=== PATIENT | female | born 1960 | race Caucasian/White ===

== ENCOUNTER 2024-11-08 14:46 | Outpatient (REF) | payer OTHER, SELFPAY ==
--- NOTE | ~2024-11-08 | XR_ITS ---
EXAMINATION: XR CHEST CLINICAL INFORMATION: T78.40XA - Allergy, unspecified, initial encounter COMPARISON: None available. TECHNIQUE: 2 views of the chest were obtained. FINDINGS: No consolidation, pleural effusion or pneumothorax. Cardiomediastinal silhouette size is normal. Multilevel thoracic spondylosis. Mild S-shaped curvature of the thoracolumbar spine. XR/XR chest 2V IMPRESSION: No acute airspace disease. Spondylosis, thoracic spine. Electronically signed by: Josr Mcintosh MD 11/08/2024 03:47 PM EDT
[2024-11-08 15:59] LABS: MANUAL DIFF FLAG NO
[2024-11-08 17:11] LABS: Hematocrit 36.3 % (37.0-47.0); Hemoglobin 12.5 g/dl (12.0-16.0); Imm Gran Abs Auto 0.01 X10*3/uL (0.00-0.03); Imm Gran Pct Auto 0.2 % (0.0-0.4); Lymphocytes Absolute Auto 2.1 X10*3/uL (1.2-4.9); Mean Corpuscular HGB Conc 34.4 g/dl (31.0-35.0); Mean Corpuscular Hemoglobin 30.4 pg (27.0-33.0); Mean Corpuscular Volume 88.3 fL (80.0-98.0); NRBC Abs Auto 0.000 X10*3/uL (0.0-0.012); NRBC Pct Auto 0.0 /100WBC (0.0-0.2); Platelet Count 185 X10*3/uL (160-400); Red Blood Count 4.11 X10*6/uL (4.20-5.50); White Blood Count 5.9 X10*3/uL (4.8-10.8)
[2024-11-09 22:59] LABS: Class Alternaria alternata 0; Class Aspergillus fumigatus 0; Class Bermuda Grass 0; Class Birch 0; Class Cat Dander 2; Class Cladosporium herbarum 0; Class Cockroach 0; Class Common Ragweed 0/1; Class Cottonwood 0; Class Derm. pterony 0; Class Dermatophagoides farinae 0; Class Dog Dander 0/1; Class Elm 0; Class Maple Box Elder 0; Class Mountain Cedar 0; Class Mouse Urine Protein 0; Class Mugwort 0; Class Oak 0; Class Penicillium crysogenum 0; Class Rough Pigweed 0; Class Sheep Sorrel 0; Class Sycamore 0; Class Timothy Grass 0; Class Walnut Tree 0; Class White Ash 0; Class White Mulberry 0; D002 - IgE D farinae <0.10 kU/L; E001 - IgE Cat Dander 1.12 kU/L; E005 - IgE Dog Dander 0.23 kU/L; G006 - IgE Timothy Grass <0.10 kU/L; I006-IgE Cockroach, German <0.10 kU/L; M002 - IgE Cladosporium herbar <0.10 kU/L; M003 - IgE Aspergillus fumigat <0.10 kU/L; M006 - IgE Alternaria alternat <0.10 kU/L; T001 IgE Maple/Box Elder <0.10 kU/L; T006 - IgE Cedar, Mountain <0.10 kU/L; T007 - IgE Oak, White <0.10 kU/L; T008 IgE Elm, American <0.10 kU/L; T010 - IgE Walnut <0.10 kU/L; T011 - IgE Maple Leaf Sycamore <0.10 kU/L; T014 - IgE Cottonwood <0.10 kU/L; T015 - IgE Ash, White <0.10 kU/L; T070 - IgE White Mulberry <0.10 kU/L; W001 - IgE Ragweed, Short 0.16 kU/L; W006 - IgE Mugwort <0.10 kU/L; W014 IgE Pigweed, Common <0.10 kU/L; W018 IgE Sheep Sorrel <0.10 kU/L
== END 2024-11-08 14:47 | disposition home or self-care (01) ==
LOC: HO.LAB 14:46
PROVIDERS: PCP Internal Medicine; Referring Provider Internal Medicine; Visit Provider Hospitalist
DX: J44.89 Other specified chronic obstructive pulmonary disease (principal); T78.40XA Allergy, unspecified, initial encounter; R07.89 Other chest pain; R06.02 Shortness of breath; R91.1 Solitary pulmonary nodule; Z01.84 Encounter for antibody response examination; Z87.891 Personal history of nicotine dependence
CPT/HCPCS: 36415; 71046; 82103; 82784; 82785; 85025; 85652; 86003

== ENCOUNTER 2024-11-08 14:46 | Outpatient (AMB) | payer OTHER, SELFPAY ==
--- NOTE | 2024-11-08 14:48 | A.OFFVIS_ITS ---
Vital Signs 11/08/24 14:49 Height 5 ft 7 in Weight 202 lb 13.204 oz BMI 31.8 BP 126/78 Blood Pressure Location Lt brachial Position Sitting Pulse 61 Pulse Source Pulse Oximeter Pulse Oximetry (%) 96 Oxygen Delivery Method Room Air Intake Visit Reasons: COPD Allergies medroxyprogesterone (From Provera) Allergy (Mild, Verified 11/08/24 14:54) Anxiety erythromycin base (From E-Mycin) Allergy (Unknown, Verified 11/08/24 14:54) Stomach Upset minocycline (From Minocin) Allergy (Unknown, Verified 11/08/24 14:54) Unknown HPI Comments Details: The patient is here for pulmonary evaluation. The patient is a 64 year woman, former smoker, who presents with worsening chest tightness and shortness of breath. The patient has been describing increasing symptoms of shortness breath with activity. Moderate severity. She did see her primary care doctor. She was started on a rescue inhaler. Subsequently she did undergo pulmonary function studies. They were done at [facility] I did review them. There appears to be a mild obstructive physiology consistent with asthma COPD overlap syndrome since she does have reversibility. In addition significant small airways disease. On further questioning she did quit smoking back in the . 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 She was exposed to significant amount of fumes and toxins for many years. She no longer is exposed to that. She denies any mold exposure or any significant allergies. She did have chronic rhinitis and eczema in the past but that has improved. As far as inhalers she was initially placed on Incruse for COPD and then she was placed on Anoro. Although she did not see any significant improvement. Based on the small airways disease I do believe that a small particle size HFA will be more effective for her. Specially since she already tried and failed powder inhalers. Has spacer will provide also some benefit and administration of the medication. Will go ahead and request allergy testing and also blood work in addition to a chest x-ray. [facility] Medical History (Updated 11/08/24 @ 20:22 by Zac Ortiz MD) Asthma-COPD overlap syndrome Allergies Social History (Updated 11/08/24 @ 14:55 by Lizzy Cunningham CMA) Patient Tobacco Use Status: Former Tobacco user Review of Systems Const Denies fever(s) Eyes Reports no additional complaints ENT Reports nasal congestion Card Denies chest pain and Reports dyspnea on exertion Resp Reports cough, Reports dyspnea on exertion and Reports wheezing GI Denies abdominal pain Musc Reports no additional complaints Skin/Breast Denies rash Neuro Reports no additional complaints Endo Reports no additional complaints Ramana/Lymph Reports no additional complaints Aller/Immun Reports wheezing Physical Exam Vital Signs: Last Vital Signs Pulse 61 11/08/24 14:49 BP 126/78 11/08/24 14:49 Pulse Ox 96 11/08/24 14:49 Oxygen Delivery Method Room Air 11/08/24 14:49 BMI result Body Mass Index 31.8 Const General: comfortable HEENT Head: Yes normocephalic Neck Neck: Yes supple Chest Chest palpation & inspection: normal inspection of the chest Resp Effort & Inspection: normal respiratory effort and prolonged expiratory phase Auscultation: diminished lung sounds Cardio Heart sounds: S1 normal heart sound present and S2 normal heart sound present GI Palpation (GI): Soft to palpation Skin General skin exam: no rashes or lesions noted Extrem General: Yes no clubbing, cyanosis or edema Assessment & Plan Assessment & Plan (1) Allergies: Code(s): T78.40XA - Allergy, unspecified, initial encounter Category: Medical Qualifiers: Encounter type: initial encounter Qualified Code(s): T78.40XA - Allergy, unspecified, initial encounter (2) Asthma-COPD overlap syndrome: Code(s): J44.89 - Other specified chronic obstructive pulmonary disease Category: Medical Plan Stop Anoro Start Symbicort with specer Bloodwork and allergy testing CXR F/U 6-8 weeks Orders: Orders Complete Blood Count Auto Diff Today J. - Other specified chronic obstructive pulmonary disease, T78.40XA - Allergy, unspecified, initial encounter Erythrocyte Sedimentation Rate Today J44. - Other specified chronic obstructive pulmonary disease, T78.40XA - Allergy, unspecified, initial encounter XR chest 2V Today J44.89 - Other specified chronic obstructive pulmonary disease, T78.40XA - Allergy, unspecified, initial encounter Resp Allergy Profile Region I Today J - Other specified chronic obstructive pulmonary disease, R91.1 - Solitary pulmonary nodule, T78.40XA - Allergy, unspecified, initial encounter Immunoglobulin E Today J44 - Other specified chronic obstructive pulmonary disease, T78.40XA - Allergy, unspecified, initial encounter Immunoglobulins,IgG IgA IgM Today J44. - Other specified chronic obstructive pulmonary disease, T78.40XA - Allergy, unspecified, initial encounter Alpha 1 Anti-trypsin Today J44. - Other specified chronic obstructive pulmonary disease, T78.40XA - Allergy, unspecified, initial encounter Medications: New budesonide-formoterol 160-4.5 mcg/actuation (Symbicort) 2 puffs inhalation BID 10.2 grams 11RF 30 days J44. - Other specified chronic obstructive pulmonary disease budesonide-formoterol 160-4.5 mcg/actuation (Symbicort) 2 puffs inhalation BID 10.2 grams 11RF 30 days J44. - Other specified chronic obstructive pulmonary disease Coding Level of Care Code New Pt Level 4 (90161) Diagnoses Allergy, initial encounter T78.40XA Encounter type: initial encounter Asthma-COPD overlap syndrome J44. Time Spent (min) 40
[2024-11-08 14:49] VITALS: BP 126/78; PULSE 61; O2SAT 96; BMI 31.8
--- OUTSIDE RECORDS SUMMARY | 2024-11-08 15:56 | XMS_ITS | Clinical Summary ---
Author Organization [facility] Address [address] [place] [address] Phone Care Team Providers Care Broke Beater Operator Name Role Phone Brooks Hansen MD Primary Care Provider Allergies Active Allergy Reactions Criticality Noted Date Comments Erythromycin Unknown 06/06/2005 Other Reaction(s): diarrhea and stomach pains Medroxyprogesterone 11/08/2020 Other Reaction(s): heart palpitations, dizziness, Unknown ANXIOUS Metformin Unknown 09/06/2024 Minocycline Dizziness,Unknown 06/06/2005 Medications blood-glucose meter kit Use daily 10/25/19 17 Active leg brace (KNEE SUPPORT BRACE [facility]) Elastic Bandages & Supports (KNEE BRACE ADJUSTABLE HINGED) [facility] Patient si Device by Does not apply route daily 03/11/20 19 Active FREESTYLE LANCETS MISC Test BID 10/25/19 17 Active blood sugar diagnostic (FreeStyle Lite Strips) test strip Test BID 10/25/19 17 Active FA/mv,Ca,iron,min/ lycopene/lut (MULTIVITAL ORAL) Take by mouth. Active acyclovir (ZOVIRAX) 5 % cream Apply small amount topically up to 5 times daily to lesion 03/17/20 12 Active etodolac (LODINE) 400 mg tablet Take 400 mg by mouth 2 times daily. Active famotidine (PEPCID) 20 mg tablet Take 1 Tab by mouth 2 times daily. 07/20/19 16 Active lisinopriL (PRINIVIL,ZESTRIL) 10 mg tablet Take 10 mg by mouth daily. Active menthol-zinc oxide (Calmoseptine) 0.44-20.6 % ointment Apply 1 Applicator topically every morning. 11/01/19 20 Active NYSTATIN TOP Apply to groins 1-2 times daily 09/11/19 22 Active simvastatin (ZOCOR) 10 mg tablet Take 10 mg by mouth at bedtime. Active mometasone (ELOCON) 0.1 % ointment APPLY TO AFFECTED AREA every other night 45 g 08/13/19 25 Active Additional Information Patient not taking.Reported on 09/06/2024 Anoro Ellipta 62.5-25 mcg/actuation inhaler 08/24/19 25 Active hydroCHLOROthiazid e 10 mg/mL suspension for reconstitution Take by mouth. 10/26/19 24 Active esomeprazole (NexIUM) [address] capsule Take 1 capsule (20 mg total) by mouth. 08/14/19 17 Active triamcinolone (KENALOG) 0.1 % ointment Apply MWF, up to nightly 30 g 09/07/19 25 Active Active Problems Problem Noted Date Diagnosed Date Skin tag 09/06/2024 Assessment & Plan (09/06/2024 4:06 PM EDT): Removed and sent to pathology. Cutaneous candidiasis 09/06/2024 Assessment & Plan (09/06/2024 4:06 PM EDT): Will treat with nystatin cream Bid until resolved. Follicular cyst of skin 09/10/2021 Overview (06/20/2024): Last Assessment & Plan: Explained findings. Explained that there is no evidence of infection and is already draining spontaneously. Continue to monitor, but no need for abx. Continue warm compress for comfort and avoid underwear rubbing by not wearing or wearing boxer shorts. She agreed to return if not resolved in the next few weeks. Moderate episode of recurren t major depressive disorder (CMS/HCC V24, CMS/HCC V28) 08/07/2021 Overview (06/20/2024): Last Assessment & Plan: Given list of therapists in the area. She contracts for safety. I also encouraged her to contact patient representatives. Mixed incontinence urge and stress 05/16/2021 Overview (06/20/2024): Had UDS at [facility]- awaiting results for recommendations Last Assessment & Plan: Follow up with Urogyn at [facility] for intervention as scheduled. Anxiety 03/14/2019 Elevated blood pressure read ing without diagnosis of hypertension 03/14/2019 Vulvar atrophy 07/13/2018 Overview (06/20/2024): Last Assessment & Plan: No treatment at this time given itching overall well controlled and unclear if had reaction last time used. Subclinical hypothyroidism 10/20/2016 Overview (06/20/2024): Last Assessment & Plan: Will recheck at next visit. Given LS, likely autoimmune thyroid disease and may benefit from treatment even when subclinical. She agreed. Acute deep vein thrombosis ( DVT) of popliteal vein of right lower extremity (CMS/HCC V24, CMS/HCC V28) 10/01/2016 Overview (06/20/2024): After a fall with ACL tear- Took Elaquist for 6 mos, then told no longer needed' No family history of clotting disorder. Taken E2 in past without issue Complete tear of right ACL 06/03/2016 Microalbuminuria 03/25/2016 Hyperlipidemia LDL goal <100 10/03/2015 Lichen sclerosus 01/29/2015 Overview (06/20/2024): Last Assessment & Plan: Reviewed findings with patient. Well controlled. Continue every other day mometasone. Assessment & Plan (09/06/2024 4:07 PM EDT): Reviewed findings with patient. Well controlled. Continue MWF mometasone. If not covered, can switch to triamcinolone. Dyspnea on exertion 09/15/2012 Overview (06/20/2024): Normal ETT and normal echo 08/2012 Incomplete right bundle branch block 08/18/2012 Type 2 diabetes mellitus wit h renal manifestations (CMS/HCC V24, CMS/HCC V28) 09/11/2011 Overview (06/20/2024): Microalbuminuria Last Assessment & Plan: Reviewed better control of DM II may also help with recurrence of itching. Back pain 02/26/2011 GERD (gastroesophageal reflux disease) 1 Neoplasm of uncertain behavior of skin 8 Overview (06/20/2024): Dysplastic nevus midback (moderately) Encounters Date Type Department Care Team Description 10/06/2024 Telephone Obstetrics and Gynecology - [address] [phone] Brenda Shen MD Lab Results 09/06/2024 3:30 PM EDT Office Visit Obstetrics and Gynecology - [address] [phone] Brenda Shen MD Encounter for gynecological examination without abnormal finding (Primary Dx); Lichen sclerosus; Vulvar atrophy; Skin tag; Cutaneous candidiasis from Last 3 Months Immunizations Name Administration Dates Next Due Influenza trivalent, 0.5mL, preservative free (Fluarix; FluLaval; Fluzone) ages 6mo and older (Afluria) 3 years and older 03/01/2005 Influenza trivalent, with pr eservative (Fluzone; Afluria) 6mo and older 01/03/2016,01/18/2015,01/30/2014,04/28,01/16/2012,01/26/2011,02/15/2010 ,01/22/2009,01/20/2008,02/20/2007,12/2005 Pneumococcal polysaccharide 23 valent (Pneumovax 23) 2yo and older 03/01/2012 Td Tetanus diptheria (Tdvax) 7yo and older 06/22/2006 Tdap Tetanus diptheria acell ular pertussis (Boostrix; Adacel) 7yo and older 04/07/2014 Surgical History Surgery Date Site/Laterality Comments APPENDECTOMY 1981 PROCEDURE: HISTORICAL APPENDECTOMY DENTAL SURGERY PROCEDURE: HI UNLISTED PROCEDURE DENTOALVEOLAR STRUCTURES; COMMENT: extractions MOLE REMOVAL PROCEDURE: HISTORICAL MOLE (REMOVAL OF) COLONOSCOPY 01/22/10 PROCEDURE: HISTORICAL COLONOSCOPY; COMMENT: hemorrhoids; repeat in ten years UPPER GASTROINTESTINAL ENDOSCOPY 01/22/10 PROCEDURE: HI UPPER GI ENDOSCOPY PERFORMED; COMMENT: normal BREAST LUMPECTOMY 2012 PROCEDURE: ---- BREAST LUMP BIOPSY ----; COMMENT: benign CHOLECYSTECTOMY 06/16/14 PROCEDURE: HISTORICAL CHOLECYSTECTOMY OTHER SURGICAL HISTORY 06/16/14 PROCEDURE: HI HYSTEROSCOPY ENDOMETRIAL ABLATION; COMMENT: Novasure STEREOTACTIC CORE BIOPSY Bilateral Medical History Medical History Date Comments 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 DX:Blad felipa neck obstruction Nevus, non-neoplastic DX:Nevus, non-neoplastic Dyspnea on exertion 09/15/2012 DX:Dyspnea o n exertion; COMMENT: Normal ETT and normal echo 08/2012 Venous thrombosis of leg 08/2016 DX:Veno us thrombosis of leg; COMMENT: Right leg after fall Family History Medical History Relation Name Comments Heart attack Father Parkinson's Disease Father Basal cell carcinoma Mother nose Breast cancer Mother Alzheimer's Ovarian cancer Paternal Grandmother unsur e age, never met her Colon cancer Neg Hx Relation Name Status Comments Father (Age 77) Mother (Age 82) Paternal Grandmother Social History Tobacco Use Types Packs/Day Years Used Date Smoking Tobacco: Former Cigarettes Q uit: 04/20/1989 Smokeless Tobacco: Former Alcohol Use Standard Drinks/Week Comments No 0 (1 standard drink = 0.6 oz pur e alcohol) Comments No Sex and Gender Information Value Date Recorded Sex Assigned at Not on file Legal Sex Female 2:54 AM EST Gender Identity Not on file Sexual Orientation Not on file Obstetrics History Para Term AB IAB SAB Ectopic Multiple Livin g Live Births 2 2 2 2 2 Date Outcome GA Total Labor Labor/2nd/3rd Weight Sex Type Anes PTL Estella A1 A5 Name Clin Term Vag-S pont Living Term Vag-S pont Living Last Filed Vital Signs Vital Sign Reading Time Taken Comments Blood Pressure 122/82 09/06/2024 3:39 PM EDT Pulse 79 09/06/2024 3:39 PM EDT Temperature - - Respiratory Rate 14 09/06/2024 3:39 PM EDT Oxygen Saturation - - Inhaled Oxygen Concentration - - Weight 95.2 kg (209 lb 12.8 oz) 09/06/2024 3:39 PM EDT Height 170.2 cm (5' 7 ) 09/06/2024 3:39 PM EDT Body Mass Index 32.86 09/06/2024 3:39 PM EDT Plan of Treatment Health Maintenance Due Date Last Done Comments COVID-19 Vaccine (#1) 1967 Diabetes: Annual Foot Exam 1972 Diabetes: Annual Retina Eye Exam 1972 Diabetes: Annual GFR (Glomerular Filtration Rate) 09/13/2020 09/14/2019 Colorectal Cancer Screening: Colonoscopy 03/23/2022 HIV Screening 03/23/2022 Social Influencers of Health Screening 03/23/2022 Diabetes: Annual Urine Albumin-Creatinine Ratio (uACR) 04/03/2022 09/14/2019 Diabetes: Blood Sugar Control Test (HGBA1C) 04/03/2022 09/14/2019 RSV Immunization Adult Patients (1 - Risk 60-74 years 1-dose series) 2022 Hypertension/CHF/CAD Annual BMP Blood Test 02/26/2024 09/14/2019 Depression Screening 04/20/2024 Cholesterol Screening (Lipid Panel) 07/28/2024 07/29/2019 Influenza Vaccine (#1) 2024 4, 01/24/2023, 02/14/2022, Additional history exists Breast Cancer Screening 04/05/2026 04/05/20 24, 03/30/2023, 03/27/2022, Additional history exists Cervical Cancer Screening: HPV 02/14/2027 02/14/2022 DTaP,Tdap,and Td Vaccines (5 - Td or Tdap) 12/12/2032 12/12/2022, 04/07/2014, 06/08/2013, Additional history exists Hepatitis C Screening Completed 12/04/2012 Zoster Vaccines Completed 09/20/2021, 01/18/2021 Pneumococcal Vaccine: 50+ Years Completed 08/23/2024, 03/01/2012 HIB Vaccines Aged Out No longer eligi ble based on patient's age to complete this topic HPV Vaccines Aged Out No longer eligi ble based on patient's age to complete this topic Hepatitis A Vaccines Aged Out No long er eligible based on patient's age to complete this topic Hepatitis B Vaccines Aged Out No long er eligible based on patient's age to complete this topic IPV Vaccines Aged Out No longer eligi ble based on patient's age to complete this topic MMR Vaccines Aged Out No longer eligi ble based on patient's age to complete this topic Meningococcal ACWY Vaccine Aged Out N o longer eligible based on patient's age to complete this topic Meningococcal B Vaccine Aged Out No l onger eligible based on patient's age to complete this topic RSV Immunization Patients Under 20 months Aged Out No longer eligible based on patient's age to complete this topic Varicella Vaccines Aged Out No longer eligible based on patient's age to complete this topic Procedures Procedure Name Priority Date/Time Associated Diagnosis Comments TISSUE EXAM Routine 09/06/2024 4:08 PM EDT Skin tag MG MAMMO DIGITAL SCREENING W HEATH BILAT Routine 04/05/2024 2:46 PM EST Encounter for screening mammogram for breast cancer HM HPV Routine 02/14/2022 HM URINE ALBUMIN CREATININE RATIO Routine 09/14/2019 ANNUAL BMP BLOOD TEST Routine 09/14/2019 HEMOGLOBIN A1C Routine 09/14/2019 LIPID PANEL Routine 07/29/2019 HEPATITIS C SCREENING Routine 12/04/2012 from Last 3 Months or Most Recently Relevant to Health Maintenance Results * Tissue exam (09/06/2024 4:08 PM EDT) Final Diagnosis Vulva, biopsy: Fibroepithel ial polyp 09/09/2024 1:11 PM EDT [facility] Clinical Information Skin tag [id number] 09/09/2024 1:11 PM EDT [facility] Gross Description A. Vulva, skin tag: Labeled vulva . Received in formalin is a 0.3 x 0.3 x 0.2 cm myles-white granular polypoid wrinkled skin which is inked blue at the base and submitted in toto in one cassette, one piece, multiple levels on one slide. DOMENIC 09/09/2024 1:11 PM EDT [facility] Disclaimer Unless otherwise specified, all tissue is 10% NB formalin fixed and paraffin embedded. 09/09/2024 1:11 PM EDT [facility] Tissue Vulval structure / Unknown Non-blood Collection / Unknown 09/06/2024 4:08 PM EDT 09/06/2024 4:08 PM EDT us Brenda Shen MD LAB PATHOLOGY ORDERABLES Fi nal Result [facility] [address] [place] [address], [place] [phone] * MG Mammo Digital Screening w Heath bilat (04/05/2024 2:46 PM EST) Anatomical Region Laterality Modality Breast Bilateral Mammography 04/08/2024 8:28 AM EST Impressions 04/08/2024 9:34 AM EST Benign. BI-RADS CATEGORY: 2 - BENIGN RECOMMENDATION: Screening bilateral mammogram is recommended in 1 year. Mammo Location: [facility], [address] [place] [address], [id number], . -------- FINAL REPORT -------- Dictated By: NILES AVILES Dictated Date: 04/08/2024 08:28 ET Assigned Physician: NILES AVILES Reviewed and Electronically Signed By: NILES AVILES Signed Date: 04/08/2024 09:34 ET Workstation ID: [id number] Transcribed By: Self Edit Transcribed Date: 04/08/2024 08:30 ET Narrative 04/08/2024 9:34 AM EST CLINICAL: 63 years old, Female, routine annual exam. There is a family history of breast cancer in the patient's mother at age 58. The patient had a lumpectomy in 2012, pathology unknown. The patient has had multiple bilateral benign biopsies. COMPARISON: 03/30/2023 through 03/21/2020 TECHNIQUE: Bilateral MLO and CC views were obtained digitally with 3-D mammogram (digital breast tomosynthesis). Computer-aided detection was utilized in evaluation of this exam (CAD). FINDINGS: There is no evidence of suspicious mass or architectural distortion. No worrisome calcifications are evident. There has been no significant change from prior exam(s). Biopsy site markers and benign calcifications are seen bilaterally. BREAST DENSITY: A - The breasts are almost entirely fatty. Procedure Note Niles Aviles MD - 04/08/2024 CLINICAL: 63 years old, Female, routine annual exam. There is a familyhistory of breast cancer in the patient's mother at age 58. The patienthad a lumpectomy in 2012, pathology unknown. The patient has had multiplebilateral benign biopsies. COMPARISON: 03/30/2023 through 03/21/2020 TECHNIQUE: Bilateral MLO and CC views were obtained digitally with 3-Dmammogram (digital breast tomosynthesis). Computer-aided detection wasutilized in evaluation of this exam (CAD). FINDINGS: There is no evidence of suspicious mass or architectural distortion. Noworrisome calcifications are evident. There has been no significantchange from prior exam(s). Biopsy site markers and benigncalcifications are seen bilaterally. BREAST DENSITY: A - The breasts are almost entirely fatty. IMPRESSION: Benign. BI-RADS CATEGORY: 2 - BENIGN RECOMMENDATION: Screening bilateral mammogram is recommended in 1 year. Mammo Location: [facility], [address] [place] [address], [facility], . -------- FINAL REPORT -------- Dictated By: NILES AVILES Dictated Date: 04/08/2024 08:28 ET Assigned Physician: NILES AVILES Reviewed and Electronically Signed By: NILES AVILES Signed Date: 04/08/2024 09:34 ET Workstation ID: [id number] Transcribed By: Self Edit Transcribed Date: 04/08/2024 08:30 ET us Self Referral Sppl IMG BI PROCEDURES Final Resul t * Cervical Cancer Screening: HPV (02/14/2022) Pathologist Counts include 234 beds at the [facility] Cervical Cancer Screening: HPV negative,a bstracted Result [facility] Provider HEALTH MAINTENANCE Final Result * Urine Albumin Creatinine Ratio (09/14/2019) [facility] Urine Albumin Creatinine Ratio abstracted Result [facility] Provider HEALTH MAINTENANCE Final Result * Annual BMP Blood Test (09/14/2019) [facility] Annual BMP Blood Test abstracted Result [facility] Provider HEALTH MAINTENANCE Final Result * (ABNORMAL) Hemoglobin A1c (09/14/2019) [facility] Hemoglobin A1C 6.9(A) <=6.5 % Blood Venous blood specimen / Unknown Result [facility] Provider LAB BLOOD ORDERABLES Misty l Result * (ABNORMAL) Lipid panel (07/29/2019) [facility] LDL/HDL Ratio 3 0 - 4 Triglycerides 63 0 - 150 mg/dL Cholesterol 190 0 - 200 mg/dL HDL 67 >=60 mg/dL LDL Cholesterol 111(A) 0 - 100 mg/dL Blood Venous blood specimen / Unknown Result [facility] Provider LAB BLOOD ORDERABLES Misty l Result * Hepatitis C Screening (12/04/2012) [facility] Hepatitis C Screening abstracted Result [facility] Provider HEALTH MAINTENANCE Final Result from Last 3 Months or Most Recently Relevant to Health Maintenance Insurance [facility] Advance Directives Documents on File Type Date Recorded Patient Powder Operator Expl anation Health Care Decision (hx) 06/26/2020 AD PASTOR DIRECTIVE Health Care Decision (hx) 06/26/2020 AD PASTOR DIRECTIVE Health Care Decision (hx) 06/26/2020 AD PASTOR DIRECTIVE Health Care Decision (hx) 06/26/2020 AD PASTOR DIRECTIVE Health Care Decision (hx) 06/26/2020 AD PASTOR DIRECTIVE Health Care Decision (hx) 06/26/2020 AD PASTOR DIRECTIVE Health Care Decision (hx) 06/26/2020 AD PASTOR DIRECTIVE Health Care Decision (hx) 06/26/2020 AD PASTOR DIRECTIVE Health Care Decision (hx) 06/26/2020 AD PASTOR DIRECTIVE Health Care Decision (hx) 04/05/2014 AD PASTOR DIRECTIVE Health Care Decision (hx) 04/05/2014 AD PASTOR DIRECTIVE Health Care Decision (hx) 04/05/2014 AD PASTOR DIRECTIVE Health Care Decision (hx) 04/05/2014 AD PASTOR DIRECTIVE Health Care Decision (hx) 04/05/2014 AD PASTOR DIRECTIVE Health Care Decision (hx) 04/05/2014 AD PASTOR DIRECTIVE Health Care Decision (hx) 04/05/2014 AD PASTOR DIRECTIVE Health Care Decision (hx) 04/05/2014 AD PASTOR DIRECTIVE Health Care Decision (hx) 04/05/2014 AD PASTOR DIRECTIVE Health Care Decision (hx) 04/05/2014 AD PASTOR DIRECTIVE Health Care Decision (hx) 04/05/2014 AD PASTOR DIRECTIVE Health Care Decision (hx) 04/05/2014 AD PASTOR DIRECTIVE Health Care Decision (hx) 04/05/2014 AD PASTOR DIRECTIVE Health Care Decision (hx) 04/05/2014 AD PASTOR DIRECTIVE Health Care Decision (hx) 04/05/2014 AD PASTOR DIRECTIVE Health Care Decision (hx) 04/05/2014 AD PASTOR DIRECTIVE Health Care Decision (hx) 04/05/2014 AD PASTOR DIRECTIVE Health Care Decision (hx) 04/05/2014 AD PASTOR DIRECTIVE Health Care Decision (hx) 04/05/2014 AD PASTOR DIRECTIVE Health Care Decision (hx) 04/05/2014 AD PASTOR DIRECTIVE Health Care Decision (hx) 04/05/2014 AD PASTOR DIRECTIVE Health Care Decision (hx) 04/05/2014 AD PASTOR DIRECTIVE Health Care Decision (hx) 04/05/2014 AD PASTOR DIRECTIVE Health Care Decision (hx) 04/05/2014 AD PASTOR DIRECTIVE Health Care Decision (hx) 04/05/2014 AD PASTOR DIRECTIVE Health Care Decision (hx) 04/05/2014 AD PASTOR DIRECTIVE Health Care Decision (hx) 04/05/2014 AD PASTOR DIRECTIVE Health Care Decision (hx) 04/05/2014 AD PASTOR DIRECTIVE Care Teams Broke Beater Operator Relationship Specialty Start Date End Date Brooks Hansen MD [address] [place] [address] PCP - General Internal Medicine 04/03/20
--- OUTSIDE RECORDS SUMMARY | 2024-11-08 15:56 | XMS_ITS | Patient Health Record ---
Author Organization [facility] Address [address] [facility] [address] [place] [address] Care Team Providers Care Training And Documentation Specialist Name Role Phone Brooks Hansen Primary Care Provider Unavailabl e Allergies Allergen (clinical drug ingredient) Drug/Non Drug Allergy documented on EMR Reaction Allergy Type Onset Date Status erythromycin Ethylsuccinate (uncoded) Unknown Allergy Active erythromycin Erythromycin Unknown Drug Allergy A ctive medroxyprogesterone MedroxyPROGESTERone Acetate Unknown Drug Allergy Active metformin Metformin Unknown Drug Allergy Active minocycline Minocycline Unknown Drug Allergy Act randal Reason For Referral No Information Medications Medication SIG (Take, Route, Frequency, Duration) Notes Start Date End Date Status Lancets - as directed Active FreeStyle Lite Test - as directed In Vitro Active Mometasone Furoate 0.1 % 1 application Externally Once a day Active Simvastatin Active Lisinopril Active Zovirax 5 % 1 application every 3 hours Externally Six times a day Active Calmoseptine 0.44%-20.6% topical ointment Active Omeprazole 20 MG 1 capsule 30 minutes before morning meal Orally Once a day Active Meloxicam 15 MG 1 tablet Orally Once a day Active Trulicity 0.75 MG/0.5ML as directed Subcutaneous Active Pepcid AC 10 MG 1 tablet as needed Orally Twice a day Active Nystatin - as directed Active Problems Problem Type SNOMED Code ICD Code Onset Dates Problem Status W/U Status Risk Notes Problem [id number] Hallux valgus (acquired), right foot (M20.11) Active confirmed Plan Of Treatment Pending Test Test Name Order Date Ultrasound : Doppler : Veins Leg Fredi. Insurance Providers Payer Name Payer Address Payer Phone Subscriber Number Group Number Insured Name Patient Relationship to Insured Coverage Start Date Coverage End Date [facility] [address] [place] [address] [place] [phone] [id number] Sangeetha Mcfadden Self - patient is the insured Medical (General) History Medical History History ICD Code Right ACL tear DVT right leg Diabetes dyspepsia lichen sclerosis osteoarthritis Surgical History Surgery Date(Month/Year) cholecystectomy 05/2014 appendectomy 1981 endometrial ablation 05/2014 Breast lump biopsy-benign 2013
== END 2024-11-08 15:29 | disposition home or self-care (01) ==
LOC: HO.HPS 14:47
PROVIDERS: PCP Internal Medicine; Referring Provider Internal Medicine; Visit Provider Hospitalist
DX: T78.40XA Allergy, unspecified, initial encounter (principal); J44.89 Other specified chronic obstructive pulmonary disease
CPT/HCPCS: 99204

== ENCOUNTER → 2024-11-08 15:32 | Outpatient (BNV) | payer OTHER, SELFPAY | PROVIDERS: PCP Internal Medicine; Referring Provider Internal Medicine; Visit Provider Radiology Diagnostic Radiology | DX: M47.814 Spondylosis without myelopathy or radiculopathy, thoracic region (principal) | CPT/HCPCS: 71046 ==

== ENCOUNTER 2025-01-05 08:20 | Outpatient (AMB) | payer OTHER, SELFPAY ==
--- OUTSIDE RECORDS SUMMARY | 2024-08-18 02:32 | XMS_ITS ---
Author Organization [facility] Address [facility] [place], [place] [id number] Care Team Providers Care Digital Photographer Name Role Phone STEPHANY AGUIRRE Primary Care Provider [phone] REASON FOR VISIT ABM Encounters Encounter Location Date Provider Diagnosis [facility] [address] [place] [phone] 08/18/2024 STEPHANY AGUIRRE PLAN OF TREATMENT Next Appt Details Provider Name:STEPHANY AGUIRRE , 03/01/2025 08:00:00 AM, [address] [place], [phone],
--- OUTSIDE RECORDS SUMMARY | 2024-08-23 04:15 | XMS_ITS ---
Author Organization [facility] Address [address] [place], [place] [phone] Care Team Providers Care Financial Business Analyst Name Role Phone STEPHANY AGUIRRE Primary [...] Diagnosis 1 COPD, mild (J44.9) Referral Organization [facility] Referring Provider First Name STEPHANY Referring Provider Last Name CARLA Referring Provider Speciality Internal M edicine Referred Provider SAVANNAH ORTIZ Referred Provider Specialty Pulmonary Di seases General Notes HOLD FOR LOCKED NOTE , Loly JAMES Admin 08/23/2024 12:31:56 PM > faxed medical referral, note and most recent lab work to [phone]>faxed separately to same number is PFT results>no [...] Lite Test - apply 1 Drop [place] [facility]Non-Drug; Combo Route) route every day as directed by physician In Vitro Once a day for 90 days 11/22/2019 Active FreeStyle Lancets - apply by [facility]Non-Drug; Combo Route) route Test daily MISCELLANEOUS 11/22/2019 Active Methocarbamol 750 MG 1 tablet Orally as needed 12/12/2022 Active Etodolac 400 MG 1 tablet with food Orally Twice a day Active Nystatin 185792 UNIT/GM 1 application Externally Twice a day [...] 50+ - as directed Orally Active Acid Investor 10 MG 1 tablet Orally at bedtime Active Anoro Ellipta 62.5-25 MCG/ACT 1 puff Inh alation Once a day for 30 day(s) 08/23/2024 Active IMMUNIZATIONS Vaccine Route Administration Date Status Comme nts [id number] IM Intramuscular 08/23/2024 Administered SOCIAL HISTORY Tobacco [...] 08/23/2024 Encounters Encounter Location Date Provider Diagnosis [facility] [address] [place] [phone] 08/23/2024 [facility] Type 2 diabetes mellitus with hyperglycemia, [...] Provider Name:STEPHANY AGUIRRE , 03/01/2025 08:00:00 AM, [address] [place] [address], [phone], Progress Notes * Examination Category Sub-Category Detail [...] blood sugars. She has been working at [employer]. She broke out her gestational diabetes diet [...]
--- OUTSIDE RECORDS SUMMARY | 2024-08-30 09:13 | XMS_ITS ---
Author Organization [facility] Address [facility] [place], [place] [phone] Care Team Providers Care Fish Roe Processor Name Role Phone STEPHANY AGUIRRE Primary Care Provider [phone] REASON FOR VISIT Fax PFT Encounters Encounter Location Date Provider Diagnosis [facility] [address] [place] [address] 08/30/2024 STEPHANY AGUIRRE PLAN OF TREATMENT Next Appt Details Provider Name:STEPHANY AGUIRRE , 03/01/2025 08:00:00 AM, [address] [place], [phone],
--- OUTSIDE RECORDS SUMMARY | 2024-11-21 04:30 | XMS_ITS ---
Author Organization [facility] Address [address], [place] [phone] Care Team Providers Care Head Of Sales And Marketing Name Role Phone CARLA STEPHANY Primary Care Provider ALLERGIES Allergen (clinical drug [...] Inhalation every 4 hrs 04/05/2024 Active Acid Telegraph Repeater Mechanic 10 MG 1 tablet Orally at bedtime Active FreeStyle Lancets - apply by Misc.(Non-Drug; Combo Route) route Test daily MISCELLANEOUS 11/22/2019 Active Nystatin 090123 UNIT/GM 1 application Externally Twice a day Active FreeStyle Lite Test - apply 1 Drop [place] [facility]Non-Drug; Combo Route) route every day as directed [...] food Orally Twice a day Active Nystatin 319198 UNIT/GM 1 application Externally Twice a day [...] 11/21/2024 Encounters Encounter Location Date Provider Diagnosis [facility] [address] [place] [address] 11/21/2024 [facility] Type 2 diabetes mellitus with hyperglycemia, [...] hrs 04/05/2024 FreeStyle Lancets - apply by [facility]Non-D rug; Combo Route) route Test daily MISCELLANEOUS 11/22/2019 FreeStyle Lite Test - apply 1 Drop by [facility]Non-Drug; Combo Route) route every day as directed by physician In Vitro Once a day 11/22/2019 Anoro Ellipta 62.5-25 MCG/ACT 1 puff Inh alation Once a day 08/23/2024 hydroCHLOROthiazide 12.5 MG 1 tablet in the morning Orally Once a day for 90 days Next Appt Details Provider Name:STEPHANY AGUIRRE , 03/01/2025 08:00:00 AM, [address] [place] [address], [phone], Progress Notes * Examination Category Sub-Category Detail [...] 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 Blood sugars in the morning have been mostly in the 130s to 150s. COPD symptoms have been fairly stable. She was on Symbicort but was not sure she tolerating it and is back on Anoro at present she is not having any chest pain or palpitations
--- OUTSIDE RECORDS SUMMARY | 2024-11-22 02:23 | XMS_ITS ---
Author Organization [facility] Address [facility] [place], [place] [phone] Care Team Providers Care Social Media Analyst Name Role Phone STEPHANY AGUIRRE Primary Care Provider REASON FOR VISIT Labs Encounters Encounter Location Date Provider Diagnosis [facility] [address] [place] [phone] 11/22/2024 STEPHANY AGUIRRE PLAN OF TREATMENT Next Appt Details Provider Name:STEPHANY AGUIRRE , 03/01/2025 08:00:00 AM, [address] [place], [phone],
--- NOTE | 2025-01-05 08:24 | MHC.OFFVIS ---
Vital Signs 01/05/25 08:25 Height 5 ft 7 in Weight 200 lb 9.93 oz BMI 31.4 BP 100/60 Blood Pressure Location Lt brachial Position Sitting Pulse 68 Pulse Source Pulse Oximeter Pulse Oximetry (%) 94 Oxygen Delivery Method Room Air Intake Visit Reasons: COPD Accompanied by: Self / Same As Patient Allergies medroxyprogesterone (From Provera) Allergy (Mild, Verified 01/05/25 08:28) Anxiety erythromycin base (From E-Mycin) Allergy (Unknown, Verified 01/05/25 08:28) Stomach Upset minocycline (From Minocin) Allergy (Unknown, Verified 01/05/25 08:28) Unknown HPI Comments Details: The patient is a 64 year woman, former smoker, who presents with worsening chest tightness and shortness of breath. The patient has been describing increasing symptoms of shortness breath with activity. Moderate severity. She did see her primary care doctor. She was started on a rescue inhaler. Subsequently she did undergo pulmonary function studies. They were done at [facility] I did review them. There appears to be a mild obstructive physiology consistent with asthma COPD overlap syndrome since she does have reversibility. In addition significant small airways disease. On further questioning she did quit smoking back in the . 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 She was exposed to significant amount of fumes and toxins for many years. She no longer is exposed to that. She denies any mold exposure or any significant allergies. She did have chronic rhinitis and eczema in the past but that has improved. As far as inhalers she was initially placed on Incruse for COPD and then she was placed on Anoro. Although she did not see any significant improvement. Based on the small airways disease I do believe that a small particle size HFA will be more effective for her. Specially since she already tried and failed powder inhalers. Has spacer will provide also some benefit and administration of the medication. Will go ahead and request allergy testing and also blood work in addition to a chest x-ray. 01/05/2025 the patient is here for pulmonary follow-up visit. Overall she has been very well. Initially started the Symbicort and ended up with diarrhea so she stopped it. However, looked to be secondary to something else. She went back on and she is doing just fine. Denies any significant chest tightness or cough. Overall her symptoms that good. We did look at her blood work including allergy testing and she did have some minimal allergies to cats dogs and ragweed. But just minimal. Seems to be doing just well on her current therapy so no additional medicines are warranted. We also did look at her x-ray. No evidence of any parenchymal lung disease although she does have some evidence of thoracic spondylosis. We did talk about it and talked about stretching and strengthening and posture. As far as vaccine she got a pneumonia vaccine she got the RSV and she is up-to-date with the Tdap. She also got a Shingrix. Overall she is doing well will plan to follow-up in a year's time. She has any issues prior to the next visit she can always call further recommendations. [facility] Medical History (Updated 11/08/24 @ 20:22 by Zac Ortiz MD) Asthma-COPD overlap syndrome Allergies Social History (Updated 11/08/24 @ 14:55 by Lizzy Cunningham CMA) Patient Tobacco Use Status: Former Tobacco user Review of Systems Const Denies fever(s) Eyes Reports no additional complaints ENT Reports nasal congestion Card Denies chest pain and Reports dyspnea on exertion Resp Reports cough, Reports dyspnea on exertion and Reports wheezing GI Denies abdominal pain Musc Reports no additional complaints Skin/Breast Denies rash Neuro Reports no additional complaints Endo Reports no additional complaints Ramana/Lymph Reports no additional complaints Aller/Immun Reports wheezing Physical Exam Vital Signs: Last Vital Signs Pulse 68 01/05/25 08:25 BP 100/60 01/05/25 08:25 Pulse Ox 94 01/05/25 08:25 Oxygen Delivery Method Room Air 01/05/25 08:25 BMI result Body Mass Index 31.4 Const General: comfortable HEENT Head: Yes normocephalic Neck Neck: Yes supple Chest Chest palpation & inspection: normal inspection of the chest Resp Effort & Inspection: normal respiratory effort and prolonged expiratory phase Auscultation: diminished lung sounds Cardio Heart sounds: S1 normal heart sound present and S2 normal heart sound present GI Palpation (GI): Soft to palpation Skin General skin exam: no rashes or lesions noted Extrem General: Yes no clubbing, cyanosis or edema Assessment & Plan Assessment & Plan (1) Allergies: Code(s): T78.40XA - Allergy, unspecified, initial encounter Category: Medical Qualifiers: Encounter type: initial encounter Qualified Code(s): T78.40XA - Allergy, unspecified, initial encounter (2) Asthma-COPD overlap syndrome: Code(s): J44.89 - Other specified chronic obstructive pulmonary disease Category: Medical Plan Symbicort with specer SYMONE as needed consider Singulair F/U 12 months Coding Level of Care Code Est Pt Level 4 (31512) Diagnoses Allergy, initial encounter T78.40XA Encounter type: initial encounter Asthma-COPD overlap syndrome J44.89 Time Spent (min) 16
[2025-01-05 08:25] VITALS: BP 100/60; PULSE 68; O2SAT 94; BMI 31.4
--- OUTSIDE RECORDS SUMMARY | 2025-01-05 09:19 | XMS_ITS | Patient Health Record ---
Author Organization [facility] Address [address], [place] [id number] Care Team Providers Care Procurement Services Manager Name Role Phone STEPHANY AGUIRRE Primary Care Provider [place] Unavailable [phone] ALLERGIES Allergen (clinical drug ingredient) Drug/Non Drug Allergy documented on EMR Reaction Allergy Type Onset Date Status erythromycin Erythromycin Ethylsuccinate Unknown Drug Allergy Active medroxyprogesterone medroxyPROGESTERone Acetate Unknown Drug Allergy Active metformin metFORMIN HCl explosive diarrhea Drug Allergy Active Minocycline HCl Unknown Drug Allergy Active medroxyprogesterone Provera chest pains, anxiety Drug Allergy Active REASON FOR REFERRAL Reason New patient appt PS and S Please send Xray Diagnosis 1 Trochanteric bursiti s of right hip (M70.61) Referral Organization [facility] Referring Provider First Name STEPHANY Referring Provider Last Name SUMTER Referring Provider Speciality Internal edicine Referred Provider [facility] Referred Provider Specialty Physical The rapist General Notes Sangeetha JAMES CMA 02/18 04:34:48 PM > faxed with attachments; xray would not fax as attachemnt- faxed separately thru EMR. Patient will call next week for appointment if she does not hear. Clinical Notes Sangeetha JAMES CMA 09:30:16 AM >refaxed- sent xray separately as this does not attach to referral. Referral Priority Routine Reason 08/24/24 W APPT New patient appt Mild COPD Diagnosis 1 COPD, mild (J44.9) Referral Organization [facility] Referring Provider First Name STEPHANY Referring Provider Last Name SUMTER Referring Provider Speciality Internal edicine Referred Provider SAVANNAH ORTIZ Referred Provider Specialty Pulmonary Di fifi General Notes HOLD FOR LOCKED NOTE , JACOBMarahdolores Schultz Admin 08/23/2024 12:31:56 PM > faxed medical referral, note and most recent lab work to [phone]>faxed separately to same number is PFT results>no referral required as is in network with pt's [facility] Referral Priority Routine MEDICATIONS Medication SIG (Take, Route, Frequency, Duration) Notes Start Date End Date Status Albuterol Sulfate HFA 108 (9 0 Base) MCG/ACT 1 puff as needed Inhalation every 4 hrs 04/05/2024 Active Anoro Ellipta 62.5-25 MCG/ACT 1 puff Inh alation Once a day 08/23/2024 Active hydroCHLOROthiazide 12.5 MG 1 tablet in the morning Orally Once a day for 90 days Active Multivitamin Adults 50+ - as directed Orally Active Acid Hand Binder Stripper 10 MG 1 tablet Orally at bedtime Active FreeStyle Lancets - apply by [facility].(Non-Drug; Combo Route) route Test daily MISCELLANEOUS 11/22/2019 Active Nystatin 005397 UNIT/GM 1 application Externally Twice a day Active FreeStyle Lite Test - apply 1 Drop by Mis.(Non-Drug; Combo Route) route every day as directed by physician In Vitro Once a day 11/22/2019 Active Flonase Allergy Relief 50 MCG/ACT 1 spray in each nostril Nasally Once a day for 30 day(s) Active Cinnamon 500 MG as directed Orally Active Biotin 5000 MCG 1 capsule Orally Onc e a day for 30 day(s) Active Vitamin D 50 MCG (2000 UT) 1 tablet Oral ly Once a day for 30 day(s) Active Simvastatin 10 MG 1 tablet in the even ing Orally Once a day 08/20/2022 Active Omeprazole 20 MG TAKE ONE CAPSULE BY MOUTH ONCE DAILY for 90 Active Methocarbamol 750 MG 1 tablet Orally as needed 12/12/2022 Active Etodolac 400 MG 1 tablet with food Orally Twice a day Active Nystatin 065864 UNIT/GM 1 application Externally Twice a day Active Mometasone Furoate 0.1 % apply by topica l route every day a thin layer to the affected area(s) External Active IMMUNIZATIONS Vaccine Route Administration Date Status Comme nts [id number] IM Intramuscular 08/23/2024 Administered Tdap (Adacel) IM Intramuscular 12/12/2022 Administered Zoster recombinant Unknown 01/24/2021 Administered Zoster recombinant Unknown 09/20/2021 Administered SOCIAL HISTORY Tobacco Use: Social History Observation Description Date Details (start date - stop date) Former Smoker NA - NA Sex Assigned At : Social History Observation Description Sex Assigned At Unknown Smoking Question Answer Notes Are you a: former smoker How long has it been since you last smoked? > 10 years Section Notes: Quit smoking in 1999 PROBLEMS Problem Type ICD Code Onset Dates Problem Status W/U Status Risk SNOMED Code Notes Problem Essential (primary) hypertension (I10) Active confirmed Essential hypertension (47541812) Problem GERD without esophagitis (K21.9) Active confirmed 290108281 Problem Mixed hyperlipidemia (E78.2) Active confirmed 007521847 Problem COPD, mild (J44.9) Active confirmed [id number] Problem Type 2 diabetes mellitus with hyperglycemia, without long-term current use of insulin (E11.65) Active confirmed Hyperglycem ia due to type 2 diabetes mellitus (486925115015401 ) Problem Type 2 diabetes mellitus without complication, without long-term current use of insulin (E11.9) Active confirmed Type II diab etes mellitus without complication (079960509) VITAL SIGNS Blood pressure diastolic 76 mm Hg 11/21/2024 Height 66.00 in 11/21/2024 Blood pressure systolic 124 mm Hg 11/21/2024 Weight 199.2 lbs 11/21/2024 BMI 32.15 kg/m2 11/21/2024 Encounters Encounter Location Date Provider Diagnosis [address] [address] 02/25/2024 [facility] Encounter for genera l adult medical examination with abnormal findings Z00.01 ; Type 2 diabetes mellitus without complication, without long-term current use of insulin E11.9 ; Essential (primary) hypertension I10 ; GERD without esophagitis K21.9 ; Mixed hyperlipidemia E78.2 ; Dyspnea on exertion R06.09 and Right hip pain M25.[address] [address] 02/28/2024 [facility] Trochanteric bursiti s of right hip M70.[address] [address] 02/29/2024 [place] [address] [place] [address] 03/01/2024 [facility] [address] [place] [address] 03/29/2024 [facility] [address] [place] [address] 04/05/2024 [facility] COPD, mild J44.9 [facility] [address] [place] [address] 04/05/2024 [facility] [address] [place] [address] 04/05/2024 [facility] [address] [place] [address] 05/03/2024 [facility] [address] [place] [address] 05/19/2024 [facility] [address] [place] [address] 06/28/2024 [facility] [address] [place] [address] 07/05/2024 [facility] Essential (primary) hypertension I10 and Type 2 diabetes mellitus without complication, without long-term current use of insulin E11.[address] [address] 07/06/[address] [address] 08/15/2024 [facility] White coat hypertension R03.[address] [address] 08/16/2024 [facility] White coat hypertension R03.0 and Essential (primary) hypertension I10 [address] [address] 08/18/[address] [address] 08/23/2024 [facility] Type 2 diabetes mellitus with hyperglycemia, without long-term current use of insulin E11.65 ; COPD, mild J44.9 ; Essential (primary) hypertension I10 and Encounter for immunization Z23 [facility] [address] [place] [address] 08/30/2024 [facility] [address] [place] [address] 11/21/2024 STEPHANY AGUIRRE Type 2 diabetes mellitus with hyperglycemia, without long-term current use of insulin E11.65 ; Essential (primary) hypertension I10 and COPD, mild J44.9 [facility] [address] [place] [address] 11/22/2024 STEPHANY AGUIRRE ASSESSMENTS Encounter Date Diagnosis Assessment Notes Treatment Notes Treatment Clinical Notes Section Notes 11/21/2024 Type 2 diabetes mellitus with hyperglycemia, without long-term current use of insulin (ICD-10 - E11.65) 1. Type 2 diabetes mellitus: We will update A1c on current diet control. Last was 7.5 and fasting sugars are not ideal. She may need medication 2. Hypertension: Stable on present hydrochlorothiazid e. No changes made today. Will check electrolytes with labs 3. COPD: Stable currently on Anoro and as needed albuterol. Will follow with pulmonary 11/21/2024 Essential (primary) hypertension (ICD-10 - I10) 1. Type 2 diabetes mellitus: We will update A1c on current diet control. Last was 7.5 and fasting sugars are not ideal. She may need medication 2. Hypertension: Stable on present hydrochlorothiazid e. No changes made today. Will check electrolytes with labs 3. COPD: Stable currently on Anoro and as needed albuterol. Will follow with pulmonary 08/23/2024 Type 2 diabetes mellitus with hyperglycemia, [...] made today 4. Prevnar 20 given today 08/16/2024 [place] hypertension (ICD-10 - R03.0) 08/16/2024 Essential (primary) hypertension (ICD-10 - I10) Device returned, uploaded. Report printed and sent to ordering provider for review. Pt reports no issues while wearing monitor. 08/15/2024 [place] hypertension (ICD-10 - R03.0) ABPM placed today patient aware of instructions, questions reviewed and consent form signed. Removal booked for tomorrow 07/05/2024 Type 2 diabetes mellitus without complication, without long-term current use of insulin (ICD-10 - E11.9) 1. Hypertension: Erratic readings. Higher here today than she has ever obtained at home. Will order a 24-hour blood pressure monitor and also have her bring on monitor to her next visit. Further decision on whether to reinstitute treatment pending results 2. Diabetes: We will update A1c on current diet therapy. 07/05/2024 Essential (primary) hypertension (ICD-10 - I10) 1. Hypertension: Erratic readings. Higher here today than she has ever obtained at home. Will order a 24-hour blood pressure monitor and also have her bring on monitor to her next visit. Further decision on whether to reinstitute treatment pending results 2. Diabetes: We will update A1c on current diet therapy. 04/05/2024 COPD, mild (ICD-10 - J44.9) 1. COPD : mild obstructive findings on PFTS will trial of Incruse and albuterol for breakthrough. Will reassess in 02/28/2024 Trochanteric bursitis of right hip (ICD-10 - M70.61) 02/25/2024 Encounter for general adult medical examination with abnormal findings (ICD-10 - Z00.01) 1. Routine healthcare maintenance: Colonoscopy is up-to-date. Mammograms up-to-date. Will she will update fasting blood work. 2. Diabetes: We will update A1c on present diet controlled. Last value was 6.9 3. Hypertension: Borderline diastolic today. Home numbers are better on current thiazide 4. Gastroesophageal reflux: Stable on omeprazole 5. Hyperlipidemia: Has not been taking her simvastatin. Will review today and stressed importance 6. Dyspnea on exertion: Will check PFTs. She has a remote smoking history 7. Right hip pain: Will check x-ray to start. Question component of bursitis 02/25/2024 Type 2 diabetes mellitus without complication, without long-term current use of insulin (ICD-10 - E11.9) 1. Routine healthcare maintenance: Colonoscopy is up-to-date. Mammograms up-to-date. Will she will update fasting blood work. 2. Diabetes: We will update A1c on present diet controlled. Last value was 6.9 3. Hypertension: Borderline diastolic today. Home numbers are better on current thiazide 4. Gastroesophageal reflux: Stable on omeprazole 5. Hyperlipidemia: Has not been taking her simvastatin. Will review today and stressed importance 6. Dyspnea on exertion: Will check PFTs. She has a remote smoking history 7. Right hip pain: Will check x-ray to start. Question component of bursitis 08/23/2024 Essential (primary) hypertension (ICD-10 - I10) [...] made today 4. Prevnar 20 given today 11/21/2024 COPD, mild (ICD-10 - J44.9) 1. Type 2 diabetes mellitus: We will update A1c on current diet control. Last was 7.5 and fasting sugars are not ideal. She may need medication 2. Hypertension: Stable on present hydrochlorothiazid e. No changes made today. Will check electrolytes with labs 3. COPD: Stable currently on Anoro and as needed albuterol. Will follow with pulmonary 02/25/2024 Essential (primary) hypertension (ICD-10 - I10) 1. Routine healthcare maintenance: Colonoscopy is up-to-date. Mammograms up-to-date. Will she will update fasting blood work. 2. Diabetes: We will update A1c on present diet controlled. Last value was 6.9 3. Hypertension: Borderline diastolic today. Home numbers are better on current thiazide 4. Gastroesophageal reflux: Stable on omeprazole 5. Hyperlipidemia: Has not been taking her simvastatin. Will review today and stressed importance 6. Dyspnea on exertion: Will check PFTs. She has a remote smoking history 7. Right hip pain: Will check x-ray to start. Question component of bursitis 08/23/2024 Encounter for immunization (ICD-10 - Z23) [...] made today 4. Prevnar 20 given today 02/25/2024 GERD without esophagitis (ICD-10 - K21.9) 1. Routine healthcare maintenance: Colonoscopy is up-to-date. Mammograms up-to-date. Will she will update fasting blood work. 2. Diabetes: We will update A1c on present diet controlled. Last value was 6.9 3. Hypertension: Borderline diastolic today. Home numbers are better on current thiazide 4. Gastroesophageal reflux: Stable on omeprazole 5. Hyperlipidemia: Has not been taking her simvastatin. Will review today and stressed importance 6. Dyspnea on exertion: Will check PFTs. She has a remote smoking history 7. Right hip pain: Will check x-ray to start. Question component of bursitis 02/25/2024 Mixed hyperlipidemia (ICD-10 - E78.2) 1. Routine healthcare maintenance: Colonoscopy is up-to-date. Mammograms up-to-date. Will she will update fasting blood work. 2. Diabetes: We will update A1c on present diet controlled. Last value was 6.9 3. Hypertension: Borderline diastolic today. Home numbers are better on current thiazide 4. Gastroesophageal reflux: Stable on omeprazole 5. Hyperlipidemia: Has not been taking her simvastatin. Will review today and stressed importance 6. Dyspnea on exertion: Will check PFTs. She has a remote smoking history 7. Right hip pain: Will check x-ray to start. Question component of bursitis 02/25/2024 Dyspnea on exertion (ICD-10 - R06.09) 1. Routine healthcare maintenance: Colonoscopy is up-to-date. Mammograms up-to-date. Will she will update fasting blood work. 2. Diabetes: We will update A1c on present diet controlled. Last value was 6.9 3. Hypertension: Borderline diastolic today. Home numbers are better on current thiazide 4. Gastroesophageal reflux: Stable on omeprazole 5. Hyperlipidemia: Has not been taking her simvastatin. Will review today and stressed importance 6. Dyspnea on exertion: Will check PFTs. She has a remote smoking history 7. Right hip pain: Will check x-ray to start. Question component of bursitis 02/25/2024 Right hip pain (ICD-10 - M25.551) 1. Routine healthcare maintenance: Colonoscopy is up-to-date. Mammograms up-to-date. Will she will update fasting blood work. 2. Diabetes: We will update A1c on present diet controlled. Last value was 6.9 3. Hypertension: Borderline diastolic today. Home numbers are better on current thiazide 4. Gastroesophageal reflux: Stable on omeprazole 5. Hyperlipidemia: Has not been taking her simvastatin. Will review today and stressed importance 6. Dyspnea on exertion: Will check PFTs. She has a remote smoking history 7. Right hip pain: Will check x-ray to start. Question component of bursitis PLAN OF TREATMENT Next Appt Details Provider Name:STEPHANY AGUIRRE , 03/01/2025 08:00:00 AM, [address] [place], [address], Insurance Providers Payer Name Payer Address Payer Phone Subscriber Number Group Number Insured Name Patient Relationship to Insured Coverage Start Date Coverage End Date [facility] [address] [place] [address] [id number] [address] SANGEETHA Self - patient is the insured 5 MEDICAL (GENERAL) HISTORY Medical History History ICD Code Disease : Dyspepsia, Disease : Lichen sclerosis, Disease : osteoarthritis, Diabetes, small airways obstructed - Dr. Ortiz Surgical History Surgery Date(Month/Year) botox inj for bladder incontinence 07/07 24 Cholecystectomy Appendectomy Right ACL tear History of endometrial ablation DVT right leg
--- OUTSIDE RECORDS SUMMARY | 2025-01-05 09:19 | XMS_ITS | Patient Health Record ---
Author Organization [facility] Address [address] [facility] [address] [place] [address] Care Team Providers Care Fisher Clam Name Role Phone Brooks Hansen Primary Care [...] Problem Status W/U Status Risk Notes Problem Acquired hallux valgus (85785554) Hallux valgus (acquired), right foot (M20.11) Active confirmed Plan Of Treatment Pending Test Test Name Order Date Ultrasound : Doppler : Veins Leg Fredi. Insurance Providers Payer Name Payer Address Payer Phone Subscriber Number Group Number Insured Name Patient Relationship to Insured Coverage Start Date Coverage End Date [facility] [address] [place], [place] [phone] [id number] Sangeetha Mcfadden Self - patient is the insured Medical (General) History Medical History History ICD Code Right ACL tear DVT right leg Diabetes dyspepsia lichen sclerosis osteoarthritis Surgical History Surgery Date(Month/Year) cholecystectomy 05/2014 appendectomy 1981 endometrial ablation 05/2014 Breast lump biopsy-benign 2013
--- OUTSIDE RECORDS SUMMARY | 2025-01-05 09:20 | XMS_ITS | Clinical Summary ---
Author Organization [facility] Address [address] [place] [address] Phone Care Team Providers Care Herbologist Name Role Phone Brooks Hansen MD Primary Care Provider [phone] Allergies Active Allergy Reactions Criticality Noted Date Comments Erythromycin Unknown 06/06/2005 Other Reaction(s): diarrhea and stomach pains Medroxyprogesterone 11/08/2020 Other Reaction(s): heart palpitations, dizziness, Unknown ANXIOUS Metformin Unknown 09/06/2024 Minocycline Dizziness,Unknown 06/06/2005 Medications blood-glucose meter kit Use daily 10/25/19 17 Active leg brace (KNEE SUPPORT BRACE [facility]) Elastic Bandages & Supports (KNEE BRACE ADJUSTABLE HINGED) [facility] Patient si Device by Does not apply [...] stress 05/16/2021 Overview (06/20/2024): Had UDS at [facility]- awaiting results for recommendations Last Assessment & Plan: Follow up with Urogyn at [facility] for intervention as scheduled. Anxiety 03/14/2019 [...] Team Description 10/06/2024 Telephone Obstetrics and Gynecology [address] [address] Brenda Shen MD from Last 3 Months Immunizations Name Administration [...] Surgical History Surgery Date Site/Laterality Comments APPENDECTOMY 1980 PROCEDURE: HISTORICAL APPENDECTOMY DENTAL SURGERY PROCEDURE: HI [...] Panel) 07/28/2024 07/29/2019 Influenza Vaccine (#1) 2024 , 01/24/2023, 02/14/2022, Additional history exists Breast Cancer [...] Procedure Name Priority Date/Time Associated Diagnosis Comments MG MAMMO DIGITAL SCREENING W HEATH BILAT Routine 04/05/2024 2:46 PM EST Encounter for screening mammogram for breast cancer HM HPV Routine 02/14/2022 HM URINE ALBUMIN CREATININE RATIO Routine 09/14/2019 ANNUAL BMP BLOOD TEST Routine 09/14/2019 HEMOGLOBIN A1C Routine 09/14/2019 LIPID PANEL Routine 07/29/2019 HM HEPATITIS C SCREENING Routine 12/04/2012 from Last 3 Months or Most Recently Relevant to Health Maintenance Results * MG Mammo Digital Screening w Heath bilat (04/05/2024 2:46 PM EST) Anatomical Region Laterality Modality Breast Bilateral Mammography 04/08/2024 8:28 AM EST Impressions 04/08/2024 9:34 AM EST Benign. BI-RADS CATEGORY: 2 - BENIGN RECOMMENDATION: Screening bilateral mammogram is recommended in 1 year. Mammo Location: [facility], [address] [place] [address], [address], . -------- FINAL REPORT -------- Dictated By: NILES AVILES Dictated Date: 04/08/2024 08:28 ET Assigned Physician: NILES AVILES Reviewed and Electronically Signed By: NILES AVILES Signed Date: 04/08/2024 09:34 ET Workstation ID: [id number] Transcribed By: Self Edit Transcribed Date: 04/08/2024 [...] year. Mammo Location: [facility], [address] [place] [address], [address], . -------- FINAL REPORT -------- Dictated By: NILES AVILES Dictated Date: 04/08/2024 08:28 ET Assigned Physician: NILES AVILES Reviewed and Electronically Signed By: NILES AVILES Signed Date: 04/08/2024 09:34 ET Workstation ID: [id number] Transcribed By: Self Edit Transcribed Date: 04/08/2024 08:30 ET us Self Referral Sppl IMG BI PROCEDURES Final Resul t * Hm Cervical Cancer Screening: HPV (02/14/2022) [facility] Cervical Cancer Screening: HPV negative,a bstracted Result [facility] Provider HEALTH MAINTENANCE Final Result * Urine Albumin Creatinine Ratio (09/14/2019) [facility] Urine Albumin Creatinine Ratio abstracted Result [facility] HEALTH MAINTENANCE Final Result * Annual BMP Blood Test (09/14/2019) [facility] Annual BMP Blood Test abstracted Result [facility] HEALTH MAINTENANCE Final Result * (ABNORMAL) Hemoglobin A1c (09/14/2019) [facility] Hemoglobin A1C 6.9(A) <=6.5 % Blood Venous blood specimen / Unknown Result [facility] Provider LAB BLOOD ORDERABLES Misty l Result * (ABNORMAL) Lipid panel (07/29/2019) [facility] LDL/HDL Ratio 3 0 - 4 Triglycerides 63 0 - 150 mg/dL Cholesterol 190 0 - 200 mg/dL HDL 67 >=60 mg/dL LDL Cholesterol 111(A) 0 - 100 mg/dL Blood Venous blood specimen / Unknown Result [facility] Provider LAB BLOOD ORDERABLES Misty l Result * Hepatitis C Screening (12/04/2012) [facility] Hepatitis C Screening abstracted Result [facility] Provider HEALTH MAINTENANCE Final Result from Last 3 Months or Most Recently Relevant to Health Maintenance Insurance [facility] Advance Directives Documents on File Type Date Recorded Patient [facility] Director Expl anation Health Care Decision (hx) 06/26/2020 [...] (hx) 04/05/2014 AD PASTOR DIRECTIVE Care Teams Herbologist Relationship Specialty Start Date End Date Brooks Hansen MD [address] [place], [place] [id number] PCP - General Internal Medicine 04/03/20
== END 2025-01-05 08:49 | disposition home or self-care (01) ==
LOC: HO.HPS 08:21
PROVIDERS: PCP Internal Medicine; Visit Provider Hospitalist
DX: T78.40XA Allergy, unspecified, initial encounter (principal); J44.89 Other specified chronic obstructive pulmonary disease
CPT/HCPCS: 99214

== ENCOUNTER 2025-01-19 17:01 | Emergency (ER) | payer OTHER, SELFPAY ==
--- OUTSIDE RECORDS SUMMARY | 2024-08-18 02:32 | XMS_ITS ---
Author Organization [facility] Address [address] [place], [place] [phone] Care Team Providers Care Enamel Burner Name Role Phone STEPHANY AGUIRRE Primary Care Provider REASON FOR VISIT ABM Encounters Encounter Location Date Provider Diagnosis [facility] [address] [place] [phone] 08/18/2024 STEPHANY AGUIRRE PLAN OF TREATMENT Next Appt Details Provider Name:STEPHANY AGUIRRE , 03/01/2025 08:00:00 AM, [address] [place], [phone],
--- OUTSIDE RECORDS SUMMARY | 2024-08-23 04:15 | XMS_ITS ---
Author Organization [facility] Address [address] [place], [place] [phone] Care Team Providers Care Operations Logistics Analyst Name Role Phone STEPHANY AGUIRRE Primary Care Provider ALLERGIES Allergen (clinical drug ingredient) Drug/Non Drug Allergy documented on EMR Reaction Allergy Type Onset Date Status erythromycin Erythromycin Ethylsuccinate Unknown Drug Allergy Active medroxyprogesterone medroxyPROGESTERone Acetate Unknown Drug Allergy Active metformin metFORMIN HCl Unknown Drug Allergy Active Minocycline HCl Unknown Drug Allergy Active medroxyprogesterone Provera chest pains, anxiety Drug Allergy Active REASON FOR REFERRAL Reason 08/24/24 W APPT New patient appt Mild COPD Diagnosis 1 COPD, mild (J44.9) Referral Organization [facility] Referring Provider First Name STEPHANY Referring Provider Last Name CARLA Referring Provider Speciality Internal M edicine Referred Provider SAVANNHA ORTIZ Referred Provider Specialty Pulmonary Di seases General Notes HOLD FOR LOCKED NOTE , Loly JAMES Admin 08/23/2024 12:31:56 PM > faxed medical referral, note and most recent lab work to [phone]>faxed separately to same number is PFT results>no referral required as is in network with pt's [facility] Referral Priority Routine REASON FOR VISIT Elevated Glucose, covid screen negative MEDICATIONS Medication SIG (Take, Route, Frequency, Duration) Notes Start Date End Date Status Albuterol Sulfate HFA 108 (9 0 Base) MCG/ACT 1 puff as needed Inhalation every 4 hrs for 30 day(s) 04/05/2024 Active Simvastatin 10 MG 1 tablet in the even ing Orally Once a day 08/20/2022 Active Omeprazole 20 MG take 1 by Oral route every day Oral Once a day for 90 days 08/20/2022 Active Mometasone Furoate 0.1 % apply by topica l route every day a thin layer to the affected area(s) External Active hydroCHLOROthiazide 12.5 MG 1 tablet in the morning Orally Once a day Active FreeStyle Lite Test - apply 1 Drop by [facility]Non-Drug; Combo Route) route every day as directed by physician In Vitro Once a day for 90 days 11/22/2019 Active FreeStyle Lancets - apply by [facility]Non-Drug; Combo Route) route Test daily MISCELLANEOUS 11/22/2019 Active Methocarbamol 750 MG 1 tablet Orally as needed 12/12/2022 Active Etodolac 400 MG 1 tablet with food Orally Twice a day Active Nystatin 945116 UNIT/GM 1 application Externally Twice a day Active Flonase Allergy Relief 50 MCG/ACT 1 spray in each nostril Nasally Once a day for 30 day(s) Active Cinnamon 500 MG as directed Orally Active Biotin 5000 MCG 1 capsule Orally Onc e a day for 30 day(s) Active Vitamin D 50 MCG (2000 UT) 1 tablet Oral ly Once a day for 30 day(s) Active Multivitamin Adults 50+ - as directed Orally Active Acid Staff Interpreter 10 MG 1 tablet Orally at bedtime Active Anoro Ellipta 62.5-25 MCG/ACT 1 puff Inh alation Once a day for 30 day(s) 08/23/2024 Active IMMUNIZATIONS Vaccine Route Administration Date Status Comme nts [id number] IM Intramuscular 08/23/2024 Administered SOCIAL HISTORY Tobacco Use: Social History Observation Description Date Details (start date - stop date) Former Smoker NA - NA Sex Assigned At : Social History Observation Description Sex Assigned At Unknown Smoking Question Answer Notes Are you a: former smoker How long has it been since you last smoked? > 10 years VITAL SIGNS Height 66.00 in 08/23/2024 Weight 208.6 lbs 08/23/2024 Blood pressure systolic 118 mm Hg 08/24/19 25 Blood pressure diastolic 78 mm Hg 025 BMI 33.67 kg/m2 08/23/2024 Encounters Encounter Location Date Provider Diagnosis [facility] [address] [place] [phone] 08/23/2024 [facility] Type 2 diabetes mellitus with hyperglycemia, without long-term current use of insulin E11.65 ; COPD, mild J44.9 ; Essential (primary) hypertension I10 and Encounter for immunization Z23 ASSESSMENTS Encounter Date Diagnosis Assessment Notes Treatment Notes Treatment Clinical Notes Section Notes 08/23/2024 Type 2 diabetes mellitus with hyperglycemia, without long-term current use of insulin (ICD-10 - E11.65) 1. Type 2 diabetes mellitus: Significant improvement on log of sugars. Will plan to recheck A1c in late September and follow-up then. Did not tolerate metformin in the past but was on Trulicity at 1 point and tolerated this 2. COPD: Mild but not optimally controlled on Incruse. Will trial switching to Anoro and she would like to see Dr. Ortiz for consultation 3. Hypertension: Stable on present regimen. No changes made today 4. Prevnar 20 given today 08/23/2024 COPD, mild (ICD-10 - J44.9) 1. Type 2 diabetes mellitus: Significant improvement on log of sugars. Will plan to recheck A1c in late September and follow-up then. Did not tolerate metformin in the past but was on Trulicity at 1 point and tolerated this 2. COPD: Mild but not optimally controlled on Incruse. Will trial switching to Anoro and she would like to see Dr. Ortiz for consultation 3. Hypertension: Stable on present regimen. No changes made today 4. Prevnar 20 given today 08/23/2024 Essential (primary) hypertension (ICD-10 - I10) 1. Type 2 diabetes mellitus: Significant improvement on log of sugars. Will plan to recheck A1c in late September and follow-up then. Did not tolerate metformin in the past but was on Trulicity at 1 point and tolerated this 2. COPD: Mild but not optimally controlled on Incruse. Will trial switching to Anoro and she would like to see Dr. Ortiz for consultation 3. Hypertension: Stable on present regimen. No changes made today 4. Prevnar 20 given today 08/23/2024 Encounter for immunization (ICD-10 - Z23) Pneumococcal Conjugate 20 given today. Patient counseled and given VIS sheet for review. 1. Type 2 diabetes mellitus: Significant improvement on log of sugars. Will plan to recheck A1c in late September and follow-up then. Did not tolerate metformin in the past but was on Trulicity at 1 point and tolerated this 2. COPD: Mild but not optimally controlled on Incruse. Will trial switching to Anoro and she would like to see Dr. Ortiz for consultation 3. Hypertension: Stable on present regimen. No changes made today 4. Prevnar 20 given today PLAN OF TREATMENT Medication Medication Name Sig Start Date Stop Date Notes hydroCHLOROthiazide 12.5 MG 1 tablet in the morning Orally Once a day Anoro Ellipta 62.5-25 MCG/ACT 1 puff Inh alation Once a day for 30 day(s) 08/23/2024 Incruse Ellipta 62.5 MCG/ACT 1 puff Inhalation Once a day 04/05/2024 Treatment Notes Assessment Notes Encounter for immunization Pneumococcal Conjugate 20 given today. Patient counseled and given VIS sheet for review. Referrals Referral Date Details 08/24/24 W APPT New patient appt Mild COPD, SAVANNAH ORTIZ Next Appt Details Follow Up: prn, Reason: Provider Name:STEPHANY AGUIRRE , 03/01/2025 08:00:00 AM, [address] [place] [address], [phone], Progress Notes * Examination Category Sub-Category Detail Notes Category Not es General Examination Heart: RSR, normal S1S2 Lungs: clear to auscultatio n Extremities: no edema General Appearance no apparent distress , pleasant, obese Psych: alert, oriented X 3 Other normal affect History and Physical Notes * HPI (History of Present Illness) Category Sub-Category Detail Notes Category Not es General Patient is here for follow-up blood sugars. She has been working at [employer]. She broke out her gestational diabetes diet and has been using this as a guide. She has managed to lose 11 pounds since her last visit. Blood sugars have improved but are still high at times. She is hoping to avoid medication. She is not having any chest pain palpitations or headaches. She does feel mildly short of breath still even on the Incruse. Consultation Request Notes Referral Date Referring Provider Referred Provider Not es 08/23/2024 STEPHANY AGUIRRE MIGUEL 08/24/24 W APPT New patient appt Mild COPD
--- OUTSIDE RECORDS SUMMARY | 2024-08-30 09:13 | XMS_ITS ---
Author Organization [facility] Address [address] [place], [place] [phone] Care Team Providers Care Marketing Research Coordinator Name Role Phone STEPHANY AGUIRRE Primary Care Provider REASON FOR VISIT Fax PFT Encounters Encounter Location Date Provider Diagnosis [facility] [address] [place] [address] 08/30/2024 STEPHANY AGUIRRE PLAN OF TREATMENT Next Appt Details Provider Name:STEPHANY AGUIRRE , 03/01/2025 08:00:00 AM, [address] [place], [phone],
--- OUTSIDE RECORDS SUMMARY | 2024-11-21 04:30 | XMS_ITS ---
Author Organization [facility] Address [address], [place] [phone] Care Team Providers Care Solutions Sales Consultant Name Role Phone STEPHANY AGUIRRE Primary Care [...] Inhalation every 4 hrs 04/05/2024 Active Acid Dials Supervisor 10 MG 1 tablet Orally at bedtime Active FreeStyle Lancets - [facility]Non-Drug; Combo Route) route Test daily MISCELLANEOUS 11/22/2019 Active Nystatin 533158 UNIT/GM 1 application Externally Twice a day Active FreeStyle Lite Test - apply 1 Drop by [facility]Non-Drug; Combo Route) route every day as directed [...] food Orally Twice a day Active Nystatin 680749 UNIT/GM 1 application Externally Twice a day [...] 11/21/2024 Encounters Encounter Location Date Provider Diagnosis [facility] [address] [place] [address] 11/21/2024 [facility] Type 2 diabetes mellitus with hyperglycemia, [...] hrs 04/05/2024 FreeStyle Lancets - apply by [facility]Non-D rug; Combo Route) route Test daily MISCELLANEOUS 11/22/2019 FreeStyle Lite Test - apply 1 Drop by [facility]Non-Drug; Combo Route) route every day as directed by physician In Vitro Once a day 11/22/2019 Anoro Ellipta 62.5-25 MCG/ACT 1 puff Inh alation Once a day 08/23/2024 hydroCHLOROthiazide 12.5 MG 1 tablet in the morning Orally Once a day for 90 days Next Appt Details Provider Name:STEPHANY AGUIRRE , 03/01/2025 08:00:00 AM, [address] [place] [address], [phone], Progress Notes * Examination Category Sub-Category Detail [...] 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 Blood sugars in the morning have been mostly in the 130s to 150s. COPD symptoms have been fairly stable. She was on Symbicort but was not sure she tolerating it and is back on Anoro at present she is not having any chest pain or palpitations
--- OUTSIDE RECORDS SUMMARY | 2024-11-22 02:23 | XMS_ITS ---
Author Organization [facility] Address [address], [place] [phone] Care Team Providers Care Pier Master Assistant Name Role Phone STEPHANY AGUIRRE Primary Care Provider REASON FOR VISIT Labs Encounters Encounter Location Date Provider Diagnosis [facility] [address] [place] [phone] 11/22/2024 STEPHANY AGUIRRE PLAN OF TREATMENT Next Appt Details Provider Name:STEPHANY AGUIRRE , 03/01/2025 08:00:00 AM, [address] [place], [phone],
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
[2025-01-19 17:10] VITALS: BP 184/108; PULSE 84; O2SAT 98
[2025-01-19 17:16] VITALS: BP 160/78; PULSE 85; RESP 18; TEMP 36.8; O2SAT 95; BMI 32.4
--- NOTE | 2025-01-19 17:20 | ECG_ITS ---
Test Reason : CHEST PRESSURE Blood Pressure : */* mmHG Vent. Rate : 87 BPM Atrial Rate : 87 BPM P-R Int : 178 ms QRS Dur : 96 ms QT Int : 376 ms P-R-T Axes : 33 -30 39 degrees QTcB Int : 452 ms Normal sinus rhythm Left axis deviation Abnormal ECG No previous ECGs available Referred By: Generic ED Physician Electronically Signed By: HENRIETTA GROVER
--- OUTSIDE RECORDS SUMMARY | 2025-01-19 18:06 | XMS_ITS | Patient Health Record ---
Author Organization [facility] Address [address] [facility] [address] [place] [address] Care Team Providers Care Ham Stripper Name Role Phone Brooks Hansen Primary Care [...] Status Risk Notes Problem Acquired hallux valgus (91915576) Hallux valgus (acquired), right foot (M20.11) Active confirmed Plan Of Treatment Pending Test Test Name Order Date Ultrasound : Doppler : Veins Leg Fredi. Insurance Providers Payer Name Payer Address Payer Phone Subscriber Number Group Number Insured Name Patient Relationship to Insured Coverage Start Date Coverage End Date [facility] [address] [place], [place] [phone] [id number] Sangeetha Mcfadden Self - patient is the insured Medical (General) History Medical History History ICD Code Right ACL tear DVT right leg Diabetes dyspepsia lichen sclerosis osteoarthritis Surgical History Surgery Date(Month/Year) cholecystectomy 05/2014 appendectomy 1981 endometrial ablation 05/2014 Breast lump biopsy-benign 2013
--- OUTSIDE RECORDS SUMMARY | 2025-01-19 18:06 | XMS_ITS | Clinical Summary ---
Author Organization [facility] Address [address] [place] [address] Phone Care Team Providers Care Pathology Laboratory Technologist Name Role Phone Brooks Hansen MD Primary Care Provider [phone] Allergies Active Allergy Reactions Criticality Noted Date Comments Erythromycin Unknown 06/06/2005 Other Reaction(s): diarrhea and stomach pains Medroxyprogesterone 11/08/2020 Other Reaction(s): heart palpitations, dizziness, Unknown ANXIOUS Metformin Unknown 09/06/2024 Minocycline Dizziness,Unknown 06/06/2005 Medications blood-glucose meter kit Use daily 10/25/19 17 Active leg brace (KNEE SUPPORT BRACE [facility]) Elastic Bandages & Supports (KNEE BRACE ADJUSTABLE HINGED) [facility] Patient si Device by Does not apply [...] stress 05/16/2021 Overview (06/20/2024): Had UDS at [facility]- awaiting results for recommendations Last Assessment & Plan: Follow up with Urogyn at [facility] for intervention as scheduled. Anxiety 03/14/2019 [...] 8 Overview (06/20/2024): Dysplastic nevus midback (moderately) Immunizations Immunization Administration Dates Next Due Influenza trivalent, 0.5mL, preservative free (Fluarix; FluLaval; Fluzone) ages 6mo and older (Afluria) 3 years and older 03/01/2005 Influenza trivalent, with pr eservative (Fluzone; Afluria) 6mo and older 01/03/2016,01/18/2015,01/30/2014,04/28,01/16/2012,01/26/2011,02/15/2010 ,01/22/2009,01/20/2008,02/20/2007,1212/2005 Pneumococcal polysaccharide 23 valent (Pneumovax 23) 2yo and older 03/01/2012 Td Tetanus diptheria (Tdvax) 7yo and older 06/22/2006 Tdap Tetanus diptheria acell ular pertussis (Boostrix; Adacel) 7yo and older 04/07/2014 Surgical History Surgery Date Site/Laterality Comments APPENDECTOMY 1980 PROCEDURE: HISTORICAL APPENDECTOMY DENTAL SURGERY PROCEDURE: RI UNLISTED PROCEDURE DENTOALVEOLAR STRUCTURES; COMMENT: extractions MOLE REMOVAL PROCEDURE: HISTORICAL MOLE (REMOVAL OF) COLONOSCOPY 01/22/10 PROCEDURE: HISTORICAL COLONOSCOPY; COMMENT: hemorrhoids; repeat in ten years UPPER GASTROINTESTINAL ENDOSCOPY 01/22/10 PROCEDURE: RI UPPER GI ENDOSCOPY PERFORMED; COMMENT: normal BREAST LUMPECTOMY 2012 PROCEDURE: ---- BREAST LUMP BIOPSY ----; COMMENT: benign CHOLECYSTECTOMY 06/16/14 PROCEDURE: HISTORICAL CHOLECYSTECTOMY OTHER SURGICAL HISTORY 06/16/14 PROCEDURE: RI HYSTEROSCOPY ENDOMETRIAL ABLATION; COMMENT: Novasure STEREOTACTIC CORE [...] 2 2 Date Outcome GA Total Labor Labor//3rd Weight Sex Type Anes PTL Estella A1 [...] Health Maintenance Due Date Last Done Comments Colorectal Cancer Screening: Colonoscopy 1962 COVID-19 Vaccine (#1) 1967 Diabetes: Annual Foot Exam 1972 Diabetes: Annual Retina Eye Exam 1972 Diabetes: Annual GFR (Glomerular Filtration Rate) 09/13/2020 09/14/2019 HIV Screening 03/23/2022 Social Influencers of Health [...] Encounter for screening mammogram for breast cancer HPV Routine 02/14/2022 URINE ALBUMIN CREATININE RATIO Routine 09/14/2019 ANNUAL [...] year. Mammo Location: [facility], [address] [place] [address], [facility], . -------- FINAL REPORT -------- Dictated By: NILES AVILES Dictated Date: 04/08/2024 08:28 ET Assigned Physician: NILES AVILES Reviewed and Electronically Signed By: NILES AVILES Signed Date: 04/08/2024 09:34 ET Workstation ID: [id number] Transcribed By: Self Edit Transcribed Date: 04/08/2024 [...] year. Mammo Location: [facility], [address] [place] [address], [facility], . -------- FINAL REPORT -------- Dictated By: NIELS AVILES Dictated Date: 04/08/2024 08:28 ET Assigned Physician: NILES AVILES Reviewed and Electronically Signed By: NILES AVILES Signed Date: 04/08/2024 09:34 ET Workstation ID: [id number] Transcribed By: Self Edit Transcribed Date: 04/08/2024 08:30 ET us Self Referral Sppl IMG BI PROCEDURES Final Resul t * Cervical Cancer Screening: HPV (02/14/2022) Cervical Cancer Screening: HPV negative,a bstracted Historical Provider HEALTH MAINTENANCE Final Result * Urine Albumin Creatinine Ratio (09/14/2019) Pathologist formerly [facility] Urine Albumin Creatinine Ratio abstracted [facility] Provider HEALTH MAINTENANCE Final Result * Annual BMP Blood Test (09/14/2019) [facility] Annual BMP Blood Test abstracted Result [facility] Provider HEALTH MAINTENANCE Final Result * (ABNORMAL) Hemoglobin A1c (09/14/2019) [facility] Hemoglobin A1C 6.9(A) <=6.5 % Blood Venous blood specimen / Unknown Result [facility] Provider LAB BLOOD ORDERABLES Misty l Result * (ABNORMAL) Lipid panel (07/29/2019) [facility] LDL/HDL Ratio 3 0 - 4 Triglycerides 63 0 - 150 mg/dL Cholesterol 190 0 - 200 mg/dL HDL 67 >=60 mg/dL LDL Cholesterol 111(A) 0 - 100 mg/dL Blood Venous blood specimen / Unknown Result [facility] Provider LAB BLOOD ORDERABLES Misty l Result * Hepatitis C Screening (12/04/2012) [facility] Hepatitis C Screening abstracted Result [facility] Provider HEALTH MAINTENANCE Final Result from Last 3 Months or Most Recently Relevant to Health Maintenance Insurance [facility] [place] [id number] Advance Directives Documents on File Type Date Recorded Patient New Order Clerk Expl anation Health Care Decision (hx) 06/26/2020 [...] (hx) 04/05/2014 AD PASTOR DIRECTIVE Care Teams Pathology Laboratory Technologist Relationship Specialty Start Date End Date Brooks Hansen MD [address] [place] [id number] PCP - General Internal Medicine 04/03/20
--- OUTSIDE RECORDS SUMMARY | 2025-01-19 18:06 | XMS_ITS | Patient Health Record ---
Author Organization [facility] Address [address] [place], [place] [id number] Care Team Providers Care Public Services Assistant Name Role Phone STEPHANY AGUIRRE Primary Care Provider [phone] [place], [facility] Unavailable [phone] ALLERGIES Allergen (clinical drug ingredient) Drug/Non Drug [...] s of right hip (M70.61) Referral Organization [facility] Referring Provider First Name STEPHANY Referring Provider Last Name BETHEL ISLAND Referring Provider Speciality Internal edicine Referred Provider [...] Diagnosis 1 COPD, mild (J44.9) Referral Organization [facility] Referring Provider First Name STEPHANY Referring Provider Last Name BETHEL ISLAND Referring Provider Speciality Internal edicine Referred Provider SAVANNAH ORTIZ Referred Provider Specialty Pulmonary Di fifi General Notes HOLD FOR LOCKED NOTE , JACOBMarahdolores Schultz Admin 08/23/2024 12:31:56 PM > faxed medical referral, note and most recent lab work to [phone]>faxed separately to same number is PFT results>no [...] 50+ - as directed Orally Active Acid [place] Rafting Guide 10 MG 1 tablet Orally at bedtime Active FreeStyle Lancets - apply by [facility].(Non-Drug; Combo Route) route Test daily MISCELLANEOUS 11/22/2019 Active Nystatin 344486 UNIT/GM 1 application Externally Twice a day [...] food Orally Twice a day Active Nystatin 161254 UNIT/GM 1 application Externally Twice a day Active Mometasone Furoate 0.1 % apply by topica l route every day a thin layer to the affected area(s) External Active IMMUNIZATIONS Vaccine Route Administration Date Status Comme nts [id number] IM Intramuscular 08/23/2024 Administered Tdap (Adacel) IM [...] (primary) hypertension (I10) Active confirmed Essential hypertension (96962656) Problem GERD without esophagitis (K21.9) Active confirmed 640123568 Problem Mixed hyperlipidemia (E78.2) Active confirmed 448305471 Problem COPD, mild (J44.9) Active confirmed 313 400186 Problem Type 2 diabetes mellitus with hyperglycemia, without long-term current use of insulin (E11.65) Active confirmed Hyperglycem ia due to type 2 diabetes mellitus (768708786367014 ) Problem Type 2 diabetes mellitus without complication, without long-term current use of insulin (E11.9) Active confirmed Type II diab etes mellitus without complication (578894881) VITAL SIGNS Blood pressure diastolic 76 mm Hg 11/21/2024 Height 66.00 in 11/21/2024 Blood pressure systolic 124 mm Hg 11/21/2024 Weight 199.2 lbs 11/21/2024 BMI 32.15 kg/m2 11/21/2024 Encounters Encounter Location Date Provider Diagnosis [address] [address] 02/25/2024 [facility] Encounter for genera l adult medical examination with abnormal findings Z00.01 ; Type 2 diabetes mellitus without complication, without long-term current use of insulin E11.9 ; Essential (primary) hypertension I10 ; GERD without esophagitis K21.9 ; Mixed hyperlipidemia E78.2 ; Dyspnea on exertion R06.09 and Right hip pain M25.[address] [address] 02/28/2024 [facility] Trochanteric bursiti s of right hip M70.[address] [address] 02/29/2024 [place] [id number] [place] [address] 03/01/2024 [facility] [address] [place] [address] 03/29/2024 [facility] [address] [place] [address] 04/05/2024 [facility] COPD, mild J44.9 [facility] [address] [place] [address] 04/05/2024 [facility] [address] [place] [address] 04/05/2024 [facility] [address] [place] [phone] 05/03/2024 [facility] [address] [place] [address] 05/19/2024 [facility] [address] [place] [address] 06/28/2024 [facility] [address] [place] [phone] 07/05/2024 [facility] Essential (primary) hypertension I10 and Type 2 diabetes mellitus without complication, without long-term current use of insulin E11.[address] [address] 07/06/[address] [address] 08/15/2024 [facility] White coat hypertension R03.[address] [address] 08/16/2024 [facility] White coat hypertension R03.0 and Essential (primary) hypertension I10 [address] [address] 08/18/[address] [address] 08/23/2024 [facility] Type 2 diabetes mellitus with hyperglycemia, without long-term current use of insulin E11.65 ; COPD, mild J44.9 ; Essential (primary) hypertension I10 and Encounter for immunization Z23 [facility] [address] [place] [phone] 08/30/2024 STEPHANY [facility] [address] [place] [address] 11/21/2024 STEPHANY AGUIRRE Type 2 diabetes mellitus with hyperglycemia, without long-term current use of insulin E11.65 ; Essential (primary) hypertension I10 and COPD, mild J44.9 [facility] [address] [place] [address] 11/22/2024 STEPHANY AGUIRRE ASSESSMENTS Encounter Date Diagnosis [...] Name:STEPHANY AGUIRRE , 03/01/2025 08:00:00 AM, [address] [place], [address], Insurance Providers Payer Name Payer Address Payer Phone Subscriber Number Group Number Insured Name Patient Relationship to Insured Coverage Start Date Coverage End Date [facility] [address] [place], [place] [id number] SANGEETHA BAL Self - patient is the insured 5 MEDICAL (GENERAL) HISTORY Medical History History ICD Code Disease : Dyspepsia, Disease : Lichen sclerosis, Disease : osteoarthritis, Diabetes, small airways obstructed - Dr. Ortiz Surgical History Surgery Date(Month/Year) botox inj for bladder incontinence 07/08 23 Cholecystectomy Appendectomy Right ACL tear History of endometrial ablation DVT right leg
[2025-01-19 20:24] LABS: Appearance Urine Clear; Glucose Urine UA Negative (Negative); PH 7.0 (5.0-9.0); Specific Gravity - Urine 1.010 (1.005-1.025)
[2025-01-19 20:27] VITALS: BP 150/72; PULSE 74; RESP 18; O2SAT 96
--- NOTE | 2025-01-19 20:32 | PC.NURSE ---
Voided urine in bedpan. Cervical collar remains in place. OZ Isaac at bedside speaking with patient.
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
[2025-01-19 21:59] VITALS: BP 130/69; PULSE 69; RESP 18; TEMP 36.3; O2SAT 95
--- NOTE | 2025-01-19 22:18 | PC.NURSE ---
provider removed C collar. pt ambulated to bathroom with steady gait.
[2025-01-19 23:11] VITALS: BP 130/69; PULSE 69; RESP 18; TEMP 36.3; O2SAT 95
== END 2025-01-19 23:12 | disposition home or self-care (01) ==
PROVIDERS: Emergency Provider Emergency Medicine Emergency Medical Services; PCP Internal Medicine
DX: S16.1XXA Strain of muscle, fascia and tendon at neck level, initial encounter (principal); M54.6 Pain in thoracic spine; R51.9 Headache, unspecified; V49.88XA Car occupant (driver) (passenger) injured in other specified transport accidents, initial encounter; Y93.89 Activity, other specified; Y92.488 Other paved roadways as the place of occurrence of the external cause; Y99.8 Other external cause status; Z79.899 Other long term (current) drug therapy
CPT/HCPCS: 70450; 71250; 72125; 73110; 73130; 81003; 93005; 99284

== ENCOUNTER → 2025-01-19 17:20 | Outpatient (BNV) | payer OTHER, SELFPAY | PROVIDERS: Emergency Provider Emergency Medicine Emergency Medical Services; PCP Internal Medicine; Visit Provider Internal Medicine | DX: R94.31 Abnormal electrocardiogram [ECG] [EKG] (principal); R07.89 Other chest pain | CPT/HCPCS: 93010 ==

== ENCOUNTER → 2025-01-19 20:32 | Outpatient (BNV) | payer OTHER, SELFPAY | PROVIDERS: Emergency Provider Emergency Medicine Emergency Medical Services; PCP Internal Medicine; Visit Provider Radiology Diagnostic Radiology | DX: M50.30 Other cervical disc degeneration, unspecified cervical region (principal) | CPT/HCPCS: 72125; 73110; 73130 ==

== ENCOUNTER 2025-02-09 07:27 | Outpatient (REF) | payer OTHER, SELFPAY ==
--- NOTE | ~2025-02-09 | XR_ITS ---
EXAMINATION: XR HAND, RIGHT CLINICAL INFORMATION: RIGHT HAND PAIN COMPARISON: January 19, 2025. TECHNIQUE: PA, lateral, and oblique views of the right hand. FINDINGS: Asymmetric joint space narrowing involving the proximal distal interphalangeal joints of the digits. No acute cortical disruption or malalignment. No lytic or blastic lesions. No gross soft tissue calcifications. No subcutaneous emphysema. XR/XR hand RT min 3V IMPRESSION: Mild to moderate osteoarthritis/osteoarthrosis. EXAMINATION: XR WRIST, RIGHT CLINICAL INFORMATION: RIGHT HAND PAIN COMPARISON: January 19, 2025 TECHNIQUE: PA, lateral, and oblique views of the right wrist. Scaphoid projection. FINDINGS: Sclerosis along the articular surface of the radial carpal joint. No acute cortical disruption or malalignment. No lytic or blastic lesions. No subcutaneous emphysema. No metallic or radiopaque foreign body. IMPRESSION: No acute fracture or dislocation. Electronically signed by: Josr Mcintosh MD 02/09/2025 07:56 AM EDT
--- NOTE | ~2025-02-09 | XR_ITS ---
EXAMINATION: XR HAND, RIGHT CLINICAL INFORMATION: RIGHT HAND PAIN COMPARISON: January 19, 2025. TECHNIQUE: PA, lateral, and oblique views of the right hand. FINDINGS: Asymmetric joint space narrowing involving the proximal distal interphalangeal joints of the digits. No acute cortical disruption or malalignment. No lytic or blastic lesions. No gross soft tissue calcifications. No subcutaneous emphysema. 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 EXAMINATION: XR WRIST, RIGHT CLINICAL INFORMATION: RIGHT HAND PAIN COMPARISON: January 19, 2025 TECHNIQUE: PA, lateral, and oblique views of the right wrist. Scaphoid projection. FINDINGS: Sclerosis along the articular surface of the radial carpal joint. No acute cortical disruption or malalignment. No lytic or blastic lesions. No subcutaneous emphysema. No metallic or radiopaque foreign body. IMPRESSION: No acute fracture or dislocation. Electronically signed by: Josr Mcintosh MD 02/09/2025 07:56 AM EDT
--- OUTSIDE RECORDS SUMMARY | 2025-02-09 07:32 | XMS_ITS | Clinical Summary ---
Author Organization [facility] Address [address] [place] [address] Phone Care Team Providers Care Electronic Component Processor Name Role Phone Brooks Hansen MD Primary Care Provider [phone] Allergies Active Allergy Reactions Criticality Noted Date Comments Erythromycin Unknown 06/06/2005 Other Reaction(s): diarrhea and stomach pains Medroxyprogesterone 11/08/2020 Other Reaction(s): heart palpitations, dizziness, Unknown ANXIOUS Metformin Unknown 09/06/2024 Minocycline Dizziness,Unknown 06/06/2005 Medications blood-glucose meter kit Use daily 10/25/19 17 Active leg brace (KNEE SUPPORT [facility]) Elastic Bandages & Supports (KNEE BRACE ADJUSTABLE HINGED) [facility] Patient si Device by Does not apply [...] stress 05/16/2021 Overview (06/20/2024): Had UDS at [facility]- awaiting results for recommendations Last Assessment & Plan: Follow up with Urogyn at [facility] for intervention as scheduled. Anxiety 03/14/2019 [...] 1980 PROCEDURE: HISTORICAL APPENDECTOMY DENTAL SURGERY PROCEDURE: [place] UNLISTED PROCEDURE DENTOALVEOLAR STRUCTURES; COMMENT: extractions MOLE REMOVAL PROCEDURE: HISTORICAL MOLE (REMOVAL OF) COLONOSCOPY 01/22/10 PROCEDURE: HISTORICAL COLONOSCOPY; COMMENT: hemorrhoids; repeat in ten years UPPER GASTROINTESTINAL ENDOSCOPY 01/22/10 PROCEDURE: [place] UPPER GI ENDOSCOPY PERFORMED; COMMENT: normal BREAST LUMPECTOMY 2012 PROCEDURE: ---- BREAST LUMP BIOPSY ----; COMMENT: benign CHOLECYSTECTOMY 06/16/14 PROCEDURE: HISTORICAL CHOLECYSTECTOMY OTHER SURGICAL HISTORY 06/16/14 PROCEDURE: [place] HYSTEROSCOPY ENDOMETRIAL ABLATION; COMMENT: Novasure STEREOTACTIC CORE [...] 1972 Diabetes: Annual Retina Eye Exam 1972 RSV Immunization Adult Patients (1 - Risk 50-74 years 1-dose series) 2012 Diabetes: Annual GFR (Glomerular Filtration Rate) 09/13/2020 09/14/2019 HIV Screening 03/23/2022 Social Influencers of Health Screening 03/23/2022 Diabetes: Annual Urine Albumin-Creatinine Ratio (uACR) 04/03/2022 09/14/2019 Diabetes: Blood Sugar Control Test (HGBA1C) 04/03/2022 09/14/2019 Hypertension/CHF/CAD Annual BMP Blood Test 02/26/2024 09/14/2019 [...] year. Mammo Location: [facility], [address] [place] [address], [facility], . -------- FINAL REPORT -------- Dictated By: NILES AVILES Dictated Date: 04/08/2024 08:28 ET Assigned Physician: NILES AVILES Reviewed and Electronically Signed By: NILES AVILES Signed Date: 04/08/2024 09:34 ET Workstation ID: [id number] Transcribed By: Self Edit Transcribed Date: 04/08/2024 [...] year. Mammo Location: [facility], [address] [place] [address], [id number], . -------- FINAL REPORT -------- Dictated By: NILES AVILES Dictated Date: 04/08/2024 08:28 ET Assigned Physician: NILES AVILES Reviewed and Electronically Signed By: NILES AVILES Signed Date: 04/08/2024 09:34 ET Workstation ID: [id number] Transcribed By: Self Edit Transcribed Date: 04/08/2024 08:30 ET us Self Referral Sppl IMG BI PROCEDURES Final Resul t * Cervical Cancer Screening: HPV (02/14/2022) Cervical Cancer Screening: HPV negative,a bstracted us Historical Provider HEALTH MAINTENANCE Final Result * Urine Albumin Creatinine Ratio (09/14/2019) Pathologist [facility] Urine Albumin Creatinine Ratio abstracted [facility] Provider HEALTH MAINTENANCE Final Result * Annual BMP Blood Test (09/14/2019) [facility] Annual BMP Blood Test abstracted Result [facility] Provider HEALTH MAINTENANCE Final Result * (ABNORMAL) Hemoglobin A1c (09/14/2019) [facility] Hemoglobin A1C 6.9(A) <=6.5 % Blood Venous blood specimen / Unknown Result [facility] Provider LAB BLOOD ORDERABLES Misty l Result * (ABNORMAL) Lipid panel (07/29/2019) [facility] LDL/HDL Ratio 3 0 - 4 Triglycerides 63 0 - 150 mg/dL Cholesterol 190 0 - 200 mg/dL HDL 67 >=60 mg/dL LDL Cholesterol 111(A) 0 - 100 mg/dL Blood Venous blood specimen / Unknown Result [facility] Provider LAB BLOOD ORDERABLES Misty l Result * Hepatitis C Screening (12/04/2012) [facility] Hepatitis C Screening abstracted Result [facility] Provider HEALTH MAINTENANCE Final Result from Last 3 Months or Most Recently Relevant to Health Maintenance Insurance [facility] Advance Directives Documents on File Type Date Recorded Patient Varnish Blender Expl anation Health Care Decision (hx) 06/26/2020 AD PASTOR DIRECTIVE Health Care Decision (hx) 06/26/2020 AD PASTOR DIRECTIVE Health Care Decision (hx) 06/26/2020 AD PASTOR DIRECTIVE Health Care Decision (hx) 06/26/2020 AD PASTOR DIRECTIVE Health Care Decision (hx) 06/26/2020 AD PASTOR DIRECTIVE Health Care Decision (hx) 06/26/2020 AD PASTOR DIRECTIVE Health Care Decision (hx) 06/26/2020 AD PSATOR DIRECTIVE Health Care Decision (hx) 06/26/2020 AD [...] (hx) 04/05/2014 AD PASTOR DIRECTIVE Care Teams Electronic Component Processor Relationship Specialty Start Date End Date Brooks Hansen MD [address] [place] [id number] PCP - General Internal Medicine 04/03/20
== END 2025-02-09 07:28 | disposition home or self-care (01) ==
LOC: HO.XRAY 07:27
PROVIDERS: PCP Internal Medicine; Visit Provider Internal Medicine
DX: M79.641 Pain in right hand (principal)
CPT/HCPCS: 73110; 73130

== ENCOUNTER → 2025-02-09 07:37 | Outpatient (BNV) | payer OTHER, SELFPAY | PROVIDERS: PCP Internal Medicine; Visit Provider Radiology Diagnostic Radiology | DX: M79.641 Pain in right hand (principal); M25.531 Pain in right wrist | CPT/HCPCS: 73110; 73130 ==

== ENCOUNTER 2025-02-21 12:38 | Outpatient (AMB) | payer OTHER, SELFPAY ==
--- OUTSIDE RECORDS SUMMARY | 2024-08-30 08:13 | XMS_ITS ---
Author Organization [facility] Address [address] [place], [place] [phone] Care Team Providers Care Superintendent Drivers Name Role Phone STEPHANY AGUIRRE Primary Care Provider REASON FOR VISIT Fax PFT Encounters Encounter Location Date Provider Diagnosis [facility] [address] [place] [phone] 08/30/2024 STEPHANY AGUIRRE PLAN OF TREATMENT Next Appt Details Provider Name:STEPHANY AGUIRRE , 03/01/2025 08:00:00 AM, [address] [place], [phone],
--- OUTSIDE RECORDS SUMMARY | 2024-11-21 03:30 | XMS_ITS ---
Author Organization [facility] Address [address], [place] [id number] Care Team Providers Care Load Tester Name Role Phone STEPHANY AGUIRRE Primary Care Provider ALLERGIES Allergen (clinical drug ingredient) Drug/Non Drug Allergy documented on EMR Reaction Allergy Type Onset Date Status erythromycin Erythromycin Ethylsuccinate Unknown Drug Allergy Active medroxyprogesterone medroxyPROGESTERone Acetate Unknown Drug Allergy Active metformin metFORMIN HCl explosive diarrhea Drug Allergy Active Minocycline HCl Unknown Drug Allergy Active medroxyprogesterone Provera chest pains, anxiety Drug Allergy Active REASON FOR VISIT 3mo MEDICATIONS Medication SIG (Take, Route, Frequency, Duration) Notes Start Date End Date Status Albuterol Sulfate HFA 108 (9 0 Base) MCG/ACT 1 puff as needed Inhalation every 4 hrs 04/05/2024 Active Acid [employer] Controller 10 MG 1 tablet Orally at bedtime Active FreeStyle Lancets - apply by Misc.(Non-Drug; Combo Route) route Test daily MISCELLANEOUS 11/22/2019 Active Nystatin 604243 UNIT/GM 1 application Externally Twice a day Active FreeStyle Lite Test - apply 1 Drop by [facility].(Non-Drug; Combo Route) route every day as directed by physician In Vitro Once a day 11/22/2019 Active Simvastatin 10 MG 1 tablet in the even ing Orally Once a day 08/20/2022 Active Anoro Ellipta 62.5-25 MCG/ACT 1 puff Inh alation Once a day 08/23/2024 Active hydroCHLOROthiazide 12.5 MG 1 tablet in the morning Orally Once a day for 90 days Active Mometasone Furoate 0.1 % apply by topica l route every day a thin layer to the affected area(s) External Active Omeprazole 20 MG take 1 by Oral route every day Oral Once a day for 90 days 08/20/2022 Active Flonase Allergy Relief 50 MCG/ACT 1 spray in each nostril Nasally Once a day for 30 day(s) Active Cinnamon 500 MG as directed Orally Active Methocarbamol 750 MG 1 tablet Orally as needed 12/12/2022 Active Etodolac 400 MG 1 tablet with food Orally Twice a day Active Nystatin 792349 UNIT/GM 1 application Externally Twice a day Active Biotin 5000 MCG 1 capsule Orally Onc e a day for 30 day(s) Active Vitamin D 50 MCG (1999 UT) 1 tablet Oral ly Once a day for 30 day(s) Active Multivitamin Adults 50+ - as directed Orally Active SOCIAL HISTORY Tobacco Use: Social History Observation Description Date Details (start date - stop date) Former Smoker NA - NA Sex Assigned At : Social History Observation Description Sex Assigned At Unknown Smoking Question Answer Notes Are you a: former smoker How long has it been since you last smoked? > 10 years Section Notes: Quit smoking in 1999 VITAL SIGNS Height 66.00 in 11/21/2024 Weight 199.2 lbs 11/21/2024 Blood pressure systolic 124 mm Hg 11/22/19 25 Blood pressure diastolic 76 mm Hg 025 BMI 32.15 kg/m2 11/21/2024 Encounters Encounter Location Date Provider Diagnosis [facility] [address] [place] [address] 11/21/2024 [facility] Type 2 diabetes mellitus with hyperglycemia, without long-term current use of insulin E11.65 ; Essential (primary) hypertension I10 and COPD, mild J44.9 ASSESSMENTS Encounter Date Diagnosis Assessment Notes Treatment Notes Treatment Clinical Notes Section Notes 11/21/2024 Type 2 diabetes mellitus with hyperglycemia, without long-term current use of insulin (ICD-10 - E11.65) 1. Type 2 diabetes mellitus: We will update A1c on current diet control. Last was 7.5 and fasting sugars are not ideal. She may need medication 2. Hypertension: Stable on present hydrochlorothi azide. No changes made today. Will check electrolytes with labs 3. COPD: Stable currently on Anoro and as needed albuterol. Will follow with pulmonary 11/21/2024 Essential (primary) hypertension (ICD-10 - I10) 1. Type 2 diabetes mellitus: We will update A1c on current diet control. Last was 7.5 and fasting sugars are not ideal. She may need medication 2. Hypertension: Stable on present hydrochlorothi azide. No changes made today. Will check electrolytes with labs 3. COPD: Stable currently on Anoro and as needed albuterol. Will follow with pulmonary 11/21/2024 COPD, mild (ICD-10 - J44.9) 1. Type 2 diabetes mellitus: We will update A1c on current diet control. Last was 7.5 and fasting sugars are not ideal. She may need medication 2. Hypertension: Stable on present hydrochlorothi azide. No changes made today. Will check electrolytes with labs 3. COPD: Stable currently on Anoro and as needed albuterol. Will follow with pulmonary PLAN OF TREATMENT Medication Medication Name Sig Start Date Stop Date Notes Albuterol Sulfate HFA 108 (9 0 Base) MCG/ACT 1 puff as needed Inhalation every 4 hrs 04/05/2024 FreeStyle Lancets - apply by [facility].(Non-D rug; Combo Route) route Test daily MISCELLANEOUS 11/22/2019 FreeStyle Lite Test - apply 1 Drop by [facility].(Non-Drug; Combo Route) route every day as directed by physician In Vitro Once a day 11/22/2019 Anoro Ellipta 62.5-25 MCG/ACT 1 puff Inh alation Once a day 08/23/2024 hydroCHLOROthiazide 12.5 MG 1 tablet in the morning Orally Once a day for 90 days Next Appt Details Provider Name:STEPHANY AGUIRRE , 03/01/2025 08:00:00 AM, [address] [place], [phone], Progress Notes * Examination Category Sub-Category Detail Notes Category Not es General Examination Heart: RSR, normal S1S2 Lungs: clear to auscultatio n Extremities: no edema General Appearance no apparent distress , pleasant Psych: alert, oriented X 3 Other normal affect History and Physical Notes * HPI (History of Present Illness) Category Sub-Category Detail Notes Category Not es 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 Blood sugars in the morning have been mostly in the 130s to 150s. COPD symptoms have been fairly stable. She was on Symbicort but was not sure she tolerating it and is back on Anoro at present she is not having any chest pain or palpitations
--- OUTSIDE RECORDS SUMMARY | 2024-11-22 01:23 | XMS_ITS ---
Author Organization [facility] Address [address], [place] [id number] Care Team Providers Care Health Sciences Dean Name Role Phone STEPHANY AGUIRRE Primary Care Provider [phone] REASON FOR VISIT Labs Encounters Encounter Location Date Provider Diagnosis [facility] [address] [place] [phone] 11/22/2024 STEPHANY AGUIRRE PLAN OF TREATMENT Next Appt Details Provider Name:STEPHANY AGUIRRE , 03/01/2025 08:00:00 AM, [address] [place], [phone],
--- OUTSIDE RECORDS SUMMARY | 2025-01-20 09:49 | XMS_ITS ---
Author Organization [facility] Address [address], [place] [id number] Care Team Providers Care Cider Press Operator Name Role Phone STEPHANY AGUIRRE Primary Care Provider [phone] REASON FOR VISIT FYI Encounters Encounter Location Date Provider Diagnosis [facility] [address] [place] [id number] 01/20/2025 STEPHANY AGUIRRE PLAN OF TREATMENT Next Appt Details Provider Name:STEPHANY AGUIRRE , 03/01/2025 08:00:00 AM, [address] [place], [address],
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
--- OUTSIDE RECORDS SUMMARY | 2025-01-23 10:32 | XMS_ITS ---
Author Organization [facility] Address [address], [place] [id number] Care Team Providers Care Mechanical Engineering Draftsperson Name Role Phone STEPHANY AGUIRRE Primary Care Provider REASON FOR VISIT claim number Encounters Encounter Location Date Provider Diagnosis [facility] [address] [place] [id number] 01/23/2025 STEPHANY AGUIRRE PLAN OF TREATMENT Next Appt Details Provider Name:STEPHANY AGUIRRE , 03/01/2025 08:00:00 AM, [address] [place], [phone],
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
--- OUTSIDE RECORDS SUMMARY | 2025-02-03 10:08 | XMS_ITS ---
Author Organization [facility] Address [address], [place] [id number] Care Team Providers Care Byproducts Operator Name Role Phone STEPHANY AGUIRRE Primary Care Provider REASON FOR VISIT light headed, dizzy, brain fog Encounters Encounter Location Date Provider Diagnosis [facility] [address] [place] [address] 02/03/2025 STEPHANY AGUIRRE PLAN OF TREATMENT Next Appt Details Provider Name:STEPHANY AGUIRRE , 03/01/2025 08:00:00 AM, [address] [place], [address],
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
--- OUTSIDE RECORDS SUMMARY | 2025-02-09 04:39 | XMS_ITS ---
Author Organization [facility] Address [address] [place], [place] [id number] Care Team Providers Care Spear Fisher Name Role Phone STEPHANY AGUIRRE Primary Care Provider REASON FOR VISIT Xray Encounters Encounter Location Date Provider Diagnosis [address] [address] 02/09/2025 STEPHANY AGUIRRE PLAN OF TREATMENT Next Appt Details Provider Name:STEPHANY AGUIRRE , 03/01/2025 08:00:00 AM, [address] [place], [address],
--- OUTSIDE RECORDS SUMMARY | 2025-02-16 22:59 | XMS_ITS | Continuity of Care Document ---
Author Organization [facility] ter Address [address] [place] [address]- Care Team Providers Care Records Management Specialist Name Role Phone Brooks Hansen MD Primary Care Physician Encounter 02/15/25 - 02/16/[address] [address]- Attending Physician: Not on Staff, Attending MD Referring Physician: Brooks Hansen MD Encounter Type: [facility]RI Allergies, Adverse Reactions, Alerts Substance Criticality Severity Reaction Reaction Severity Status erythromycin diarrhea and stomach pains Active Provera heart palpitati ons, dizziness Active Minocin dizziness Active Medications Acid controller 20mg Acid controller 20mg, 0 Refills, Maintenance, 10/31/24 8:20:00 AM EDT Start Date: 10/31/24 Status: Ordered Medication Dispense Status: Completed Total Allowed Fills: 1 Fills Dispensed: 0 Anoro Ellipta Inhalation, Daily, 0 Refills, Maintenance, 10/31/24 8:19:00 AM EDT, Partial fill upon patient request if the prescription is for a schedule II opioid drug. Start Date: 10/31/24 Status: Ordered Medication Dispense Status: Completed Total Allowed Fills: 1 Fills Dispensed: 0 Biotin By Mouth, Daily, 0 Refills, Maintenance, 10/31/24 8:19:00 AM EDT, Partial fill upon patient request if the prescription is for a schedule II opioid drug. Start Date: 10/31/24 Status: Ordered Medication Dispense Status: Completed Total Allowed Fills: 1 Fills Dispensed: 0 Cinnamon = 1,000 mg, By Mouth, 2 times a day, 0 Refills, Maintenance, 12/16/21 3:17:00 PM EDT, Partial fill upon patient request if the prescription is for a schedule II opioid drug. Start Date: 12/16/21 Status: Ordered Medication Dispense Status: Completed Total Allowed Fills: 1 Fills Dispensed: 0 estradiol 0.1 mg/g vaginal cream See Instructions, 1 gram vaginally for two weeks then twice weekly, # 42.5 Gm, 6 Refills, Maintenance, 12/01/24 12:53:00 PM EDT, [id number], Partial fill upon patient request if the prescription is for a schedule II opioid drug., 94.4, kg, 04/27/23 15:33:00 EST, Dry Weight Start Date: 12/01/24 Status: Ordered Medication Dispense Status: Completed Quantity: 42.5 Unit: g Total Allowed Fills: 7 Fills Dispensed: 0 etodolac 400 mg oral tablet 1 tablet = 400 mg, By Mouth, 2 times a day, 0 Refills, Maintenance, 12/16/21 3:18:00 PM EDT, Partialfill upon patient request if the prescription is for a schedule II opioid drug. Start Date: 12/16/21 Status: Ordered Medication Dispense Status: Completed Total Allowed Fills: 1 Fills Dispensed: 0 Fluticasone Nasal 2 sprays, Nares, Both, Daily, PRN Other, for post nasal drip, 0 Refills, Maintenance, 06/30/22 2:01:00 PM EDT, Partial fill upon patient request if the prescription is for a schedule II opioid drug. Start Date: 06/30/22 Status: Ordered Medication Dispense Status: Completed Total Allowed Fills: 1 Fills Dispensed: 0 Free style lancets Free style lancets, 0 Refills, Maintenance, 10/31/24 8:20:00 AM EDT Start Date: 10/31/24 Status: Ordered Medication Dispense Status: Completed Total Allowed Fills: 1 Fills Dispensed: 0 mometasone 0.1% topical cream Topically, Daily, for lichen sclerosus, 0 Refills, Maintenance, 12/16/21 3:19:00 PM EDT, Partial fill upon patient request if the prescription is for a schedule II opioid drug. Start Date: 12/16/21 Status: Ordered Medication Dispense Status: Completed Total Allowed Fills: 1 Fills Dispensed: 0 nystatin topical 190257 u/gm cream 1 application, Topically, 2 times a day, # 30 Gm, 4 Refills, Maintenance, 07/27/23 3:31:00 PM EDT, Cream, [facility] # [id number], Partial fill upon patient request if the prescription is for a schedule II opioid drug., 1 application Topically 2 times a day, 170.18, cm, 07/28/22 13:54:00 EDT, Height, 94.4, kg, 04/27/23 15:33:00 EST, Dry Weight Start Date: 07/27/23 Status: Ordered Medication Dispense Status: Completed Quantity: 30.0 Unit: g Total Allowed Fills: 5 Fills Dispensed: 0 omeprazole 20 mg oral delayed release tablet 1 tablet = 20 mg, By Mouth, Daily in AM, 0 Refills, Maintenance, 06/30/22 2:01:00 PM EDT, Partial fill upon patient request if the prescription is for a schedule II opioid drug. Start Date: 06/30/22 Status: Ordered Medication Dispense Status: Completed Total Allowed Fills: 1 Fills Dispensed: 0 Simvastatin By Mouth, Daily before dinner, 0 Refills, Maintenance, 10/31/24 8:19:00 AM EDT, Partial fill upon patient request if the prescription is for a schedule II opioid drug. Start Date: 10/31/24 Status: Ordered Medication Dispense Status: Completed Total Allowed Fills: 1 Fills Dispensed: 0 Spectravite Cardio Health oral tablet 1 tablet, By Mouth, Daily in AM, 0 Refills, Maintenance, 12/16/21 3:18:00 PM EDT, Partial fill upon patient request if the prescription is for a schedule II opioid drug. Start Date: 12/16/21 Status: Ordered Medication Dispense Status: Completed Total Allowed Fills: 1 Fills Dispensed: 0 Vitamin D3 oral tablet 1 tablet = 10 mcg, By Mouth, Daily in AM, 0 Refills, Maintenance, 12/16/21 3:17:00 PM EDT, Partial fill upon patient request if the prescription is for a schedule II opioid drug. Start Date: 12/16/21 Status: Ordered Medication Dispense Status: Completed Total Allowed Fills: 1 Fills Dispensed: 0 Problem List Condition Confirmation Course Effective Dates Status Health Status Informant Diabetes Confirmed Active GERD (gastroesophageal reflux disease) Confirmed Active Hypercholesteremia Confirmed Active Hypertension Confirmed Active Hypothyroid Confirmed Active Mixed incontinence Confirmed Active Lichen sclerosus Confirmed Active Nocturia Confirmed Active Obese class I Confirmed Active Overactive bladder Confirmed Active Hypertonic bladder Confirmed Active Social History Social History Type Response Sexual Sexually involved in last 6 months: No. Smoking Status Former smoker, quit more than 30 days ago entered on: 12/16/21 Sex Sex Representation Female (finding) Patient Care team information Care Team Personnel Name: Brooks Hansen MD Position: [facility] Physician - Primary Care Member Role: PCP Address: [address] [place] [address] Telecom: Care Team Related Persons Name: ANAY POZO Name: JESSE BAL Name: KAMI Méndez Insurance Providers Guarantor name: SUKHWINDER BAL Health Plan Information #: 1 Payer: [facility] Payer Identifier: NA Member Number: [id number] Group Number: [id number] Subscriber Identifier: NA Relationship to Subscriber: self Coverage Type: NA Coverage Verification Date: NA Telecom: NA Address:
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
[2025-02-21 13:01] VITALS: BMI 32.3
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
--- OUTSIDE RECORDS SUMMARY | 2025-02-21 15:21 | XMS_ITS | Patient Health Record ---
Author Organization [facility] Address [address] [place] [address] Care Team Providers Care Apparatus Cleaner Name Role Phone Brooks Hasnen Primary Care Provider Unavailabl e Allergies Allergen [...] Status Risk Notes Problem Acquired hallux valgus (54004929) Hallux valgus (acquired), right foot (M20.11) Active confirmed Plan Of Treatment Pending Test Test Name Order Date Ultrasound : Doppler : Veins Leg Fredi. Insurance Providers Payer Name Payer Address Payer Phone Subscriber Number Group Number Insured Name Patient Relationship to Insured Coverage Start Date Coverage End Date [facility] [address] [facility] [address] [place], [place] [phone] [id number] Sangeetha Mcfadden Self - patient is the insured Medical (General) History Medical History History ICD Code Right ACL tear DVT right leg Diabetes dyspepsia lichen sclerosis osteoarthritis Surgical History Surgery Date(Month/Year) cholecystectomy 05/2014 appendectomy 1981 endometrial ablation 05/2014 Breast lump biopsy-benign 2013
--- OUTSIDE RECORDS SUMMARY | 2025-02-21 15:22 | XMS_ITS | Clinical Summary ---
Author Organization [facility] Address [address] [place] [address] Phone Care Team Providers Care Sausage Tier Name Role Phone Brooks Hansen MD Primary Care Provider [phone] Allergies Active Allergy Reactions Criticality Noted Date Comments Erythromycin Unknown 06/06/2005 Other Reaction(s): diarrhea and stomach pains Medroxyprogesterone 11/08/2020 Other Reaction(s): heart palpitations, dizziness, Unknown ANXIOUS Metformin Unknown 09/06/2024 Minocycline Dizziness,Unknown 06/06/2005 Medications blood-glucose meter kit Use daily 10/25/19 17 Active leg brace (KNEE SUPPORT BRACE [facility] Elastic Bandages & Supports (KNEE BRACE ADJUSTABLE HINGED) [facility] Patient si Device by Does not apply [...] stress 05/16/2021 Overview (06/20/2024): Had UDS at [facility]- awaiting results for recommendations Last Assessment & Plan: Follow up with Urogyn at [facility] for intervention as scheduled. Anxiety 03/14/2019 [...] 1980 PROCEDURE: HISTORICAL APPENDECTOMY DENTAL SURGERY PROCEDURE: ND UNLISTED PROCEDURE DENTOALVEOLAR STRUCTURES; COMMENT: extractions MOLE REMOVAL PROCEDURE: HISTORICAL MOLE (REMOVAL OF) COLONOSCOPY 01/22/10 PROCEDURE: HISTORICAL COLONOSCOPY; COMMENT: hemorrhoids; repeat in ten years UPPER GASTROINTESTINAL ENDOSCOPY 01/22/10 PROCEDURE: ND UPPER GI ENDOSCOPY PERFORMED; COMMENT: normal BREAST LUMPECTOMY 2012 PROCEDURE: ---- BREAST LUMP BIOPSY ----; COMMENT: benign CHOLECYSTECTOMY 06/16/14 PROCEDURE: HISTORICAL CHOLECYSTECTOMY OTHER SURGICAL HISTORY 06/16/14 PROCEDURE: ND HYSTEROSCOPY ENDOMETRIAL ABLATION; COMMENT: Novasure STEREOTACTIC CORE [...] year. Mammo Location: [facility], [address] [place] [address], [facility], . -------- FINAL REPORT -------- Dictated By: NILES AVILES Dictated Date: 04/08/2024 08:28 ET Assigned Physician: NILES AVILES Reviewed and Electronically Signed By: NILES AVILES Signed Date: 04/08/2024 09:34 ET Workstation ID: [id number] Transcribed By: Self Edit Transcribed Date: 04/08/2024 [...] year. Mammo Location: [facility], [address] [place] [address], [id number], . -------- FINAL REPORT -------- Dictated By: NILES AVILES Dictated Date: 04/08/2024 08:28 ET Assigned Physician: NILES AVILES Reviewed and Electronically Signed By: NILES AVILES Signed Date: 04/08/2024 09:34 ET Workstation ID: [id number] Transcribed By: Self Edit Transcribed Date: 04/08/2024 08:30 ET us Self Referral Sppl IMG BI PROCEDURES Final Resul t * Cervical Cancer Screening: HPV (02/14/2022) Cervical Cancer Screening: HPV negative,a bstracted us Historical Provider HEALTH MAINTENANCE Final Result * Urine Albumin Creatinine Ratio (09/14/2019) Pathologist [facility] Urine Albumin Creatinine Ratio abstracted [facility] Provider HEALTH MAINTENANCE Final Result * Annual BMP Blood Test (09/14/2019) [facility] Annual BMP Blood Test abstracted Result [facility] Provider HEALTH MAINTENANCE Final Result * (ABNORMAL) Hemoglobin A1c (09/14/2019) [facility] Hemoglobin A1C 6.9(A) <=6.5 % Blood Venous blood specimen / Unknown Result [facility] Provider LAB BLOOD ORDERABLES Misty l Result * (ABNORMAL) Lipid panel (07/29/2019) [facility] LDL/HDL Ratio 3 0 - 4 Triglycerides 63 0 - 150 mg/dL Cholesterol 190 0 - 200 mg/dL HDL 67 >=60 mg/dL LDL Cholesterol 111(A) 0 - 100 mg/dL Blood Venous blood specimen / Unknown Result [facility] Provider LAB BLOOD ORDERABLES Misty l Result * Hepatitis C Screening (12/04/2012) [facility] Hepatitis C Screening abstracted Result [facility] Provider HEALTH MAINTENANCE Final Result from Last 3 Months or Most Recently Relevant to Health Maintenance Insurance [facility] Advance Directives Documents on File Type Date Recorded Patient Manufacturing Assistant Expl anation Health Care Decision (hx) 06/26/2020 [...] (hx) 04/05/2014 AD PASTOR DIRECTIVE Care Teams Sausage Tier Relationship Specialty Start Date End Date Brooks Hansen MD [address] [place] [id number] PCP - General Internal Medicine 04/03/20
== END 2025-02-21 14:00 | disposition home or self-care (01) ==
LOC: HO.HOS 12:39
PROVIDERS: PCP Internal Medicine; Visit Provider Orthopaedic Surgery
DX: M79.641 Pain in right hand (principal); M79.631 Pain in right forearm
CPT/HCPCS: 99203